=== PATIENT | male | born 1955 | race Caucasian/White ===

== ENCOUNTER 2016-08-16 11:39 | Outpatient (CLI) | payer OTHER | END 2016-08-16 11:40 | disposition critical access hospital (66) | DX: M25.551 Pain in right hip (principal) | CPT/HCPCS: A0425; A0427 ==

== ENCOUNTER 2016-08-16 11:53 | Emergency (ER) | payer OTHER ==
[2016-08-16] MEDS ORDERED: HYDROmorphone 1 MG/ML SYRINGE IVP STA (12:02)
[2016-08-16] MEDS ORDERED: SODIUM CHLORIDE 0.9% 1,000 ML IV ONE (12:02)
[2016-08-16] MEDS ORDERED: HYDROmorphone 1 MG/ML SYRINGE ONE (12:12)
--- NOTE | 2016-08-16 13:15 | XRAY Preliminary Report ---
Exam: XR Hip w/Pelvis 2-3V RT IMPRESSION: Posterior inferior lateral dislocation right prosthetic head out of the right prosthetic acetabulum. [facility] SITE ID: [id number]
[2016-08-16] MEDS ORDERED: PROPOFOL 200 MG/20 ML VIAL IVP ONE ×2 (13:18→13:20)
--- NOTE | 2016-08-16 13:25 | XRAY Report ---
EXAM: RIGHT HIP RADIOGRAPHY EXAM DATE: 08/16/2016 01:02 PM. CLINICAL HISTORY: Right hip pain after twisting injury today. COMPARISON: CT abdomen and pelvis 10/08/2015. TECHNIQUE: 2 views. FINDINGS: Bones: Normal. No fractures or bone lesion. Joints: Posterior inferior lateral displacement of the prosthetic right femoral head out of the right acetabular prosthesis. Surgical hardware appears to be intact. Soft Tissues: Normal. No soft tissue swelling. IMPRESSION: Posterior inferior lateral dislocation right prosthetic head out of the right prosthetic acetabulum. [facility] Referring Provider Line: [phone] SITE ID: [id number]
[2016-08-16 13:58] LABS: BASOPHILS % (AUTO) 0.8 %; EOSINOPHILS # (AUTO) 0.1 10^3/uL (0.0-0.7); EOSINOPHILS % (AUTO) 1.7 %; HCT - HEMATOCRIT 41.2 % (42.0-52.0); HGB - HEMOGLOBIN 14.4 g/dL (14.0-18.0); LYMPHOCYTES # (AUTO) 1.4 10^3/uL (1.5-3.5); LYMPHOCYTES % (AUTO) 29.1 %; MEAN CORPUSCULAR HEMOGLOBIN 30.5 pg (27.0-31.0); MEAN CORPUSCULAR VOLUME 87.2 fL (80.0-94.0); MEAN PLATELET VOLUME 8.4 fL (7.4-11.4); MONOCYTES # (AUTO) 0.3 10^3/uL (0.0-1.0); MONOCYTES % (AUTO) 7.2 %; NEUTROPHILS # (AUTO) 2.9 10^3/uL (1.5-6.6); NEUTROPHILS % (AUTO) 61.2 %; NUCLEATED RED BLOOD CELLS AUTO 0.1 /100WBC; RED BLOOD COUNT 4.72 10^6/uL (4.70-6.10); RED CELL DISTRIBUTION WIDTH 13.3 % (12.0-15.0); UNCORRECTED WHITE BLOOD COUNT 4.7 x10^3/uL; WHITE BLOOD COUNT 4.7 x10^3/uL (4.8-10.8)
[2016-08-16 14:03] LABS: CALCIUM 8.9 mg/dL (8.5-10.3); CREATININE 0.9 mg/dL (0.6-1.2)
--- NOTE | 2016-08-16 14:14 | ED Physician Documentation ---
History of Present Illness - Stated complaint Stated Complaint: Hip dislocation - Chief complaint Chief Complaint: Ext Problem - History obtained from History obtained from: Patient, EMS - History of Present Illness Timing: Today Pain level max: 10 Pain level now: 10 Improved by: nothing Worsened by: nothing - Additonal information Additional information: R hip pain s/p bending in internally rotating the knee. s/p R THR approx [address] [facility]. Review of Systems Ten Systems: 10 systems reviewed and negative Constitutional: denies: Fever, Chills Nose: denies: Rhinorrhea / runny nose, Congestion Cardiac: denies: Chest pain / pressure Respiratory: denies: Dyspnea, Cough GI: denies: Nausea, Vomiting Skin: denies: Rash Musculoskeletal: denies: Neck pain, Back pain Neurologic: denies: Headache PD PAST MEDICAL HISTORY - Past Medical History Past Medical History: Yes Cardiovascular: Hypertension, High cholesterol Respiratory: CPAP use, Other Neuro: None Endocrine/Autoimmune: None GI: GERD : Kidney stones, Other HEENT: Other Psych: None Musculoskeletal: Other Derm: None - Past Surgical History Past Surgical History: Yes General: Cholecystectomy, Colonoscopy Ortho: Hip replacement, Shoulder arthroplasty, Arthroscopic surgery HEENT: Rhinoplasty - Present Medications Home Medications: Ambulatory Orders Medication Instructions Recorded Confirmed Lisinopril/Hydrochlorothiazide 1 tab PO DAILY 10/26/12 08/16/16 [Lisinopril-Hctz 20-25 mg Tab] Meloxicam [Mobic] 15 mg PO DAILY 10/26/12 08/16/16 Multivitamin [Multivitamins] 1 each PO DAILY 10/26/12 08/16/16 Loratadine [Claritin] 10 mg PO DAILY 01/03/15 08/16/16 Testosterone [Fortesta] 180 gm TD DAILY 01/03/15 08/16/16 Tadalafil [Cialis] 5 mg ORAL QPM PRN 10/08/15 08/16/16 Aspirin [Aspirin EC] 81 mg PO DAILY 08/16/16 08/16/16 Furosemide [Lasix] 20 mg PO DAILY 08/16/16 08/16/16 Hydrocodone/Acetaminophen 1 - 2 each PO Q6H PRN #10 tablet 08/16/16 [Hydrocodon-Acetaminophen 5-325] Omeprazole [PriLOSEC] 20 mg PO DAILY 08/16/16 08/16/16 - Allergies Allergies/Adverse Reactions: Allergies Allergy/AdvReac Type Severity Reaction Status Date / Time erythromycin base AdvReac Severe Nausea Verified 08/16/16 11:58 [Erythromycin Base] - Social History Does the pt smoke?: No Smoking Status: Never smoker Does the pt drink ETOH?: Yes Does the pt have substance abuse?: No - Immunizations Immunizations are current?: Yes - POLST Patient has POLST: No PD ED PE NORMAL - Vitals Vital signs reviewed: Yes - General General: Alert and oriented X 3, Well developed/nourished, Other (appears in pain) - HEENT HEENT: PERRL - Neck Neck: Supple, no meningeal sign - Cardiac Cardiac: RRR, Strong equal pulses - Respiratory Respiratory: No respiratory distress, Clear bilaterally - Abdomen Abdomen: Soft, Non tender, Non distended - Derm Derm: Warm and dry - Extremities Extremities: Other (palpable deformity to the R hip. NVI.) - Neuro Neuro: Alert and oriented X 3 - Psych Psych: Normal mood, Normal affect Results - Vitals Vitals: Vital Signs - 24 hr 08/16/16 08/16/16 08/16/16 11:55 13:22 13:28 Temperature 36.8 C Heart Rate 78 68 62 Respiratory 16 18 15 Rate Blood Pressure 153/84 H 135/87 H 122/82 H O2 Saturation 98 97 100 08/16/16 08/16/16 13:31 14:28 Temperature Heart Rate 65 64 Respiratory 14 17 Rate Blood Pressure 113/74 129/89 H O2 Saturation 100 94 Oxygen O2 Source Room air - Labs Labs: Laboratory Tests 08/16/16 08/16/16 13:35 13:35 WBC 4.7 L RBC 4.72 Hgb 14.4 Hct 41.2 L MCV 87.2 MCH 30.5 MCHC 35.0 RDW 13.3 Plt Count 175 MPV 8.4 Neut # 2.9 Lymph # 1.4 L Spink # 0.3 Eos # 0.1 Baso # 0.0 Absolute Nucleated RBC 0.00 Nucleated RBCs 0.1 Sodium 141 Potassium 4.0 Chloride 105 Carbon Dioxide 28 Anion Gap 8.0 BUN 27 H Creatinine 0.9 Estimated GFR (MDRD) 86 L Glucose 130 H Calcium 8.9 - Rads (name of study) R hip xray Radiology: Prelim report reviewed, EMP read contemporaneously, See rad report ( Posterior inferior lateral dislocation right prosthetic head out of the right prosthetic acetabulum. ) Procedures - Reduction Body part reduced: Right, Hip, prosthetic Fracture or dislocation: Dislocation Anesthesia: Propofol Hip reduction technique: Fulcrum Reduction aftercare: NV intact, Xray confirms reduction, Alignment improved, Splint applied (knee immobilizer), Patient tolerated well - Procedural sedation Sedation prep: Informed consent, Time out completed, Last meal (last night), PE performed, AHA 2 - mild disease Sedation medications: propofol, given by MD Patient status during sedation: Responds to tactile, Vitals remained stable, Maintained airway (did require supplemental O2 during the procedure, but no assisted ventilations) Sedation recovery: Recovered uneventfully, Back to baseline PD MEDICAL DECISION MAKING - ED course Complexity details: reviewed results, re-evaluated patient, considered differential, d/w patient ED course: Patient with a right prosthetic hip dislocation. This was reduced in the emergency department under propofol sedation. Tolerated well. X-ray confirms reduction. We will have him follow-up with his orthopedist for further evaluation. Patient states that he does have crutches at home that he can use. Patient counseled regarding signs and symptoms for which I believe and urgent re -evaluation would be necessary. Patient with good understanding of and agreement to plan and is comfortable going home at this time This document was made in part using voice recognition software. While efforts are made to proofread this document, sound alike and grammatical errors may occur. Departure - Departure Disposition: 01 Home, Self Care Clinical Impression: Dislocation of hip prosthesis Qualifiers: Encounter type: initial encounter Qualified Code(s): T84.029A - Dislocation of unspecified internal joint prosthesis, initial encounter Condition: Good Instructions: ED Hip Replace Dislocation Reduc Follow-Up: REVA DIAZ [Primary Care Provider] - Within 1 week Prescriptions: Hydrocodone/Acetaminophen [Hydrocodon-Acetaminophen 5-325] 1 - 2 each PO Q6H PRN #10 tablet PRN Reason: pain Comments: Wear the knee immobilizer for the next 24-48 hours to help prevent you from bending and re-dislocating the hip. He should also use her crutches to help with weightbearing at home. Call your orthopedist for a follow-up appointment. Return if you worsen. Do not drink alcohol or drive while on narcotic pain medicine. Note that many narcotic pain relievers also contain tylenol/acetaminophen. Please ensure that your total dose of acetaminophen from all sources does not exceed 3 grams (3000mg) per day. You may constipated on this medication, take a stool softener such as "Colace" twice a day while you are on it. Also recommend a neny-bth-cqqczor laxative such as senna or MiraLAX any day that you do not have a bowel movement. If you received narcotic pain medication in the emergency department, do not drive or operate machinery for the next 24 hours. Discharge Date/Time: 08/16/16 14:40
--- NOTE | 2016-08-16 14:18 | XRAY Preliminary Report ---
Exam: XR Hip w/Pelvis 2-3V RT IMPRESSION: Interval reduction right hip arthroplasty dislocation. Alignment through the right hip is within normal limits. [facility] SITE ID: [id number]
--- NOTE | 2016-08-16 14:20 | XRAY Report ---
EXAM: RIGHT HIP AND PELVIS RADIOGRAPHY EXAM DATE: 08/16/2016 01:49 PM. HISTORY: Post reduction. COMPARISONS: 08/16/2016. TECHNIQUE: 1 view of the pelvis and 1 view of the hip. FINDINGS: Interval reduction right hip dislocation. Alignment through the right hip arthroplasty hard lemon is within normal limits. No acute bony abnormalities are seen. IMPRESSION: Interval reduction right hip arthroplasty dislocation. Alignment through the right hip is within normal limits. [facility] Referring Provider Line: [phone] SITE ID: [id number]
[2016-08-16 14:28] VITALS: BP 129/89
== END 2016-08-16 14:40 | disposition home or self-care (01) ==
LOC: EDUNIT# → ED 11:53
DX: T84.020A Dislocation of internal right hip prosthesis, initial encounter (principal); Y83.8 Other surgical procedures as the cause of abnormal reaction of the patient, or of later complication, without mention of misadventure at the time of the procedure; X50.9XXA Other and unspecified overexertion or strenuous movements or postures, initial encounter; Y93.89 Activity, other specified; I10 Essential (primary) hypertension; Z79.82 Long term (current) use of aspirin
CPT/HCPCS: 27265; 36415; 73502; 80048; 85025; 94770; 96361; 96374; 99152; 99284; J1170

== ENCOUNTER 2016-10-02 09:30 | Emergency (ER) | payer OTHER ==
[2016-10-02] MEDS ORDERED: IPRATROPIUM/ALBUTEROL 3 ML NEB INH STA (10:03)
[2016-10-02] MEDS ORDERED: DOXYCYCLINE 100 MG TABLET PO STA (10:03)
[2016-10-02] MEDS ORDERED: DOXYCYCLINE 100 MG TABLET PO ONE (10:09)
[2016-10-02] MEDS ORDERED: IPRATROPIUM/ALBUTEROL 3 ML NEB INH ONE (10:19)
== END 2016-10-02 11:33 | disposition home or self-care (01) ==
DX: R04.2 Hemoptysis (principal); I10 Essential (primary) hypertension; Z96.649 Presence of unspecified artificial hip joint
CPT/HCPCS: 36415; 71020; 80053; 83690; 85025; 94640; 99283; 99284; A9270; J7620

== ENCOUNTER 2016-12-11 17:36 | Outpatient (CLI) | payer OTHER | END 2016-12-11 17:37 | disposition critical access hospital (66) | LOC: EMS 17:36 | PROVIDERS: ATTEND Surgery | DX: M25.551 Pain in right hip (principal); Z96.641 Presence of right artificial hip joint | CPT/HCPCS: A0425; A0427 ==

== ENCOUNTER 2016-12-11 17:51 | Observation (INO) | payer OTHER ==
[2016-12-11] MEDS ORDERED: HYDROmorphone 1 MG/ML CARPUJECT IVP STA ×2 (17:55→19:24)
--- NOTE | 2016-12-11 17:57 | ED Physician Documentation ---
PD HPI LOWER EXT INJURY - Stated complaint Stated Complaint: DISLOCATED HIP - Chief complaint Chief Complaint: Trauma Ext - History obtained from History obtained from: Patient, EMS - History of Present Illness PD HPI LOW EXT INJURY LOCATION: Other (He has a prosthetic hip on the right, about a year and a half old. He dislocated it in July. He had his foot up on something to tie his shoes and dislocated it again, pain was severe but better after pain medication in route.) Review of Systems Ten Systems: 10 systems reviewed and negative Constitutional: reports: Reviewed and negative Cardiac: denies: Chest pain / pressure, Palpitations Respiratory: denies: Dyspnea, Cough PD PAST MEDICAL HISTORY - Past Medical History Cardiovascular: Hypertension, High cholesterol Respiratory: CPAP use, Other Neuro: None Endocrine/Autoimmune: None GI: GERD : Kidney stones, Other HEENT: Other Psych: None Musculoskeletal: Other Derm: None - Past Surgical History Past Surgical History: Yes General: Cholecystectomy, Colonoscopy Ortho: Hip replacement, Shoulder arthroplasty, Arthroscopic surgery HEENT: Rhinoplasty - Present Medications Home Medications: Ambulatory Orders Medication Instructions Recorded Confirmed Lisinopril/Hydrochlorothiazide 1 tab PO DAILY 10/26/12 10/02/16 [Lisinopril-Hctz 20-25 mg Tab] Meloxicam [Mobic] 15 mg PO DAILY 10/26/12 10/02/16 Multivitamin [Multivitamins] 1 each PO DAILY 10/26/12 10/02/16 Loratadine [Claritin] 10 mg PO DAILY 01/03/15 10/02/16 Tadalafil [Cialis] 5 mg ORAL QPM PRN 10/08/15 10/02/16 Aspirin [Aspirin EC] 81 mg PO DAILY 08/16/16 10/02/16 Furosemide [Lasix] 20 mg PO DAILY 08/16/16 10/02/16 Hydrocodone/Acetaminophen 1 - 2 each PO Q6H PRN #10 tablet 08/16/16 10/02/16 [Hydrocodon-Acetaminophen 5-325] Omeprazole [PriLOSEC] 20 mg PO DAILY 08/16/16 10/02/16 Albuterol Sulfate [Proair Hfa 2 puffs PO PRN PRN 10/02/16 10/02/16 Inhaler] Dexamethasone [Decadron] 4 mg PO DAILY #5 tablet 10/02/16 Doxycycline Hyclate 100 mg PO BID #14 tablet 10/02/16 guaiFENesin/CODEINE [Robitussin AC] 10 ml PO Q6H PRN #240 ml 10/02/16 - Allergies Allergies/Adverse Reactions: Allergies Allergy/AdvReac Type Severity Reaction Status Date / Time erythromycin base AdvReac Severe Nausea Verified 08/16/16 11:58 [Erythromycin Base] - Social History Does the pt smoke?: No Smoking Status: Never smoker Does the pt drink ETOH?: Yes Does the pt have substance abuse?: No - Family History Family history: reports: Non contributory - Immunizations Immunizations are current?: Yes - POLST Patient has POLST: No PD ED PE NORMAL - Vitals Vital signs reviewed: Yes - General General: Alert and oriented X 3, No acute distress - HEENT HEENT: Pharynx benign - Cardiac Cardiac: RRR, No murmur - Respiratory Respiratory: No respiratory distress, Clear bilaterally - Abdomen Abdomen: Soft, Non tender - Back Back: No CVA TTP, No spinal TTP - Derm Derm: Normal color, Warm and dry - Extremities Extremities: Other (Right hip is shortened and flexed and very tender but neurovascularly intact with normal sensation and bounding pedal pulses in the right foot.) - Neuro Neuro: Alert and oriented X 3, Normal speech - Psych Psych: Normal mood, Normal affect Results - Vitals Vitals: Vital Signs - 24 hr 12/11/16 12/11/16 12/11/16 17:51 18:25 18:33 Temperature 36.7 C Heart Rate 71 70 46 L Respiratory 16 20 Rate Blood Pressure 140/92 H 132/85 H O2 Saturation 97 97 12/11/16 12/11/16 12/11/16 18:40 18:45 18:50 Temperature Heart Rate 96 70 Respiratory 18 Rate Blood Pressure 170/96 H 161/89 H 145/80 H O2 Saturation 100 12/11/16 12/11/16 12/11/16 19:15 19:54 20:17 Temperature Heart Rate 72 70 90 Respiratory 18 18 14 Rate Blood Pressure 131/91 H 134/91 H 138/83 H O2 Saturation 98 100 96 Oxygen O2 Source Room air Oxygen Flow Rate 4 - Rads (name of study) R hip XR Radiology: EMP read contemporaneously (No obvious fracture, there is a dislocated, probably posterior dislocation.) Post reduction Radiology: EMP read contemporaneously (no change) Procedures - Reduction Body part reduced: Right, Hip, prosthetic Fracture or dislocation: Dislocation Hip reduction technique: Fulcrum Reduction aftercare: NV intact, Patient tolerated well. No: Xray confirms reduction (unable to reduce) - Procedural sedation Sedation prep: Informed consent, AHA 2 - mild disease Sedation medications: propofol (100mg then 70mg IVP) Patient status during sedation: Unresponsive, Vitals remained stable, Maintained airway, Recovered uneventfully. No: Respiratory depression, Hypoxia , Needed resp assistance Sedation recovery: Recovered uneventfully PD MEDICAL DECISION MAKING - ED course ED course: 61-year-old gentleman with prosthetic hip dislocation. I was unable to reduce it using conscious sedation, and spoke with Rowdy Desai, the orthopedist at 7:15 PM who recommends admission by the hospitalist to fix it in the morning as he has not been n.p.o. very long. I spoke with the hospitalist for admission at 7:21 PM. Departure - Departure Disposition: ED Place in Observation Clinical Impression: Dislocation of hip prosthesis Qualifiers: Encounter type: initial encounter Qualified Code(s): T84.029A - Dislocation of unspecified internal joint prosthesis, initial encounter Condition: Stable Discharge Date/Time: 12/11/16 21:05
[2016-12-11] MEDS ORDERED: HYDROmorphone 1 MG/ML CARPUJECT ONE ×2 (18:05→19:53)
[2016-12-11] MEDS ORDERED: PROPOFOL 200 MG/20 ML VIAL IVP ONE (18:29)
--- NOTE | 2016-12-11 18:40 | XRAY Preliminary Report ---
Exam: XR Hip w/Pelvis 2-3V RT IMPRESSION: Limited evaluation due to nonstandard images. Patient is unable to lie flat for the x-ray s, all images performed when the patient lying on his left side. Dislocated right total hip arthropla sty. The femoral head arthroplasty component appears dislocated posteriorly from the acetabular compo nent. No acute fracture is seen. [facility] SITE ID: [id number]
[2016-12-11] MEDS ORDERED: PROPOFOL 200 MG/20 ML VIAL IVP STA (18:42)
--- NOTE | 2016-12-11 18:42 | XRAY Report ---
EXAM: RIGHT HIP RADIOGRAPHY EXAM DATE: 12/11/2016 06:26 PM. HISTORY: Dislocation. History of right hip replacement on 07/15. Previous dislocation 3 months ago. COMPARISONS: 08/16/2016. TECHNIQUE: 2 views. FINDINGS: Limited evaluation due to nonstandard images. Patient is unable to lie flat for the x-rays, all images performed when the patient lying on his left side. Dislocated right total hip arthroplast y. The femoral head arthroplasty component appears dislocated posteriorly from the acetabular compone nt. No acute fracture is seen. IMPRESSION: Limited evaluation due to nonstandard images. Patient is unable to lie flat for the x-ray s, all images performed when the patient lying on his left side. Dislocated right total hip arthropla sty. The femoral head arthroplasty component appears dislocated posteriorly from the acetabular compo nent. No acute fracture is seen. [facility] Referring Provider Line: [phone] SITE ID: [id number]
--- NOTE | 2016-12-11 19:50 | XRAY Preliminary Report ---
Exam: XR Hip w/Pelvis 2-3V RT IMPRESSION: 1. Prior right total hip arthroplasty. 2. Persistent superolateral right hip dislocation. 3. No fracture evident. 4. Left hip degenerative changes. [facility] SITE ID: [id number]
--- NOTE | 2016-12-11 19:52 | XRAY Report ---
EXAM: RIGHT HIP AND PELVIS RADIOGRAPHY EXAM DATE: 12/11/2016 06:54 PM. HISTORY: Post reduction. COMPARISONS: Right hip series earlier same day. TECHNIQUE: 1 view of the pelvis and 1 view of the hip. FINDINGS: Bones: Normal. No fracture or bone lesion. Joints: Prior right total hip arthroplasty. No abnormal lucency adjacent to right hip prosthesis to suggest loosening. Persistent superolateral right hip dislocation. At least mild left hip joint space narrowing. Soft Tissues: Normal. No soft tissue swelling. IMPRESSION: 1. Prior right total hip arthroplasty. 2. Persistent superolateral right hip dislocation. 3. No fracture evident. 4. Left hip degenerative changes. [facility] Referring Provider Line: [phone] SITE ID: [id number]
[2016-12-11] MEDS ORDERED: SODIUM CHLORIDE 0.9% 20 ML ONE (19:57)
[2016-12-11] MEDS ORDERED: ACETAMINOPHEN 325 MG TABLET PO PRN (20:39)
[2016-12-11] MEDS ORDERED: ONDANSETRON 4 MG/2 ML VIAL IVP PRN (20:39)
[2016-12-11] MEDS: oxyCODONE 5 MG TABLET PO PRN (21:19)
[2016-12-11] MEDS: SODIUM CHLORIDE FLUSH 0.9% 10 ML SYRINGE IVP SCH (21:21)
[2016-12-11] MEDS: MORPHINE 2 MG/ML SYRINGE IVP PRN ×2 (21:21→23:37)
[2016-12-11] MEDS: SODIUM CHLORIDE FLUSH 0.9% 10 ML SYRINGE IVP PRN ×3 (21:21→23:37)
[2016-12-11 21:56] LABS: BASOPHILS % (AUTO) 0.3 %; EOSINOPHILS % (AUTO) 0.5 %; HCT - HEMATOCRIT 41.3 % (42.0-52.0); HGB - HEMOGLOBIN 13.7 g/dL (14.0-18.0); LYMPHOCYTES # (AUTO) 1.1 10^3/uL (1.5-3.5); LYMPHOCYTES % (AUTO) 11.9 %; MEAN CORPUSCULAR HEMOGLOBIN 28.7 pg (27.0-31.0); MEAN CORPUSCULAR HGB CONC 33.1 g/dL (32.0-36.0); MEAN CORPUSCULAR VOLUME 86.7 fL (80.0-94.0); MEAN PLATELET VOLUME 7.8 fL (7.4-11.4); MONOCYTES # (AUTO) 0.4 10^3/uL (0.0-1.0); MONOCYTES % (AUTO) 4.2 %; NEUTROPHILS # (AUTO) 7.9 10^3/uL (1.5-6.6); NEUTROPHILS % (AUTO) 83.1 %; RED BLOOD COUNT 4.76 10^6/uL (4.70-6.10); RED CELL DISTRIBUTION WIDTH 14.6 % (12.0-15.0); UNCORRECTED WHITE BLOOD COUNT 9.5 x10^3/uL; WHITE BLOOD COUNT 9.5 x10^3/uL (4.8-10.8)
[2016-12-11 22:03] LABS: CALCIUM 8.9 mg/dL (8.5-10.3); CREATININE 0.8 mg/dL (0.6-1.2); POTASSIUM 3.9 mmol/L (3.5-5.0)
[2016-12-12] MEDS: oxyCODONE 5 MG TABLET PO PRN ×2 (01:47→06:21)
[2016-12-12] MEDS ORDERED: PROMETHAZINE INJ 25 MG in SODIUM CHLORIDE 0.9% 50 ML IV PRN (04:12)
--- NOTE | 2016-12-12 04:53 | HISTORY & PHYSICAL EXAMINATION ---
DATE OF OBSERVATION: 12/11/2016. Please note that I did see the patient and completed admission orders prior to midnight. CHIEF COMPLAINT: Right hip pain. HISTORY OF PRESENT ILLNESS: The patient is a 61-year-old white male with past medical history of right hip replacement, which he underwent in 07/2015. Since then, he had an episode of a dislocated hip, for which he was seen in 07/2016. At that time his hip was reduced without complication. On the day of presentation, the patient was at his home. He put up his right leg on a coffee table and twisted sideways, trying to fix his socks. Subsequently, he dislocated the right hip and developed intense pain, inability to ambulate. The patient reported that last time in 07/2016 when he had similar problem with his hip, he did the similar motion and activity. Upon presentation to the ER, the patient was hemodynamically stable and afebrile. Other than the hip problem, he reported no change in his medical issues. So the ER physician, Dr. Rick, tried to reduce the hip, but was not successful ; therefore, called orthopedic surgeon, Dr. Desai. Dr. Desai requested admission of this patient under the hospitalist service pending a hip reduction procedure. PAST MEDICAL HISTORY: Hypertension, obstructive sleep apnea using CPAP, gastroesophageal reflux, osteoarthritis status post right hip replacement. OUTPATIENT MEDICATIONS The patient could not provide an updated medication list, but he told me he takes 1. Furosemide for lymphedema. 2. He takes lisinopril and hydrochlorothiazide for high blood pressure. Other medications are unknown. SOCIAL HISTORY: The patient does not smoke. He drinks alcohol socially. FAMILY HISTORY: Reviewed and unremarkable. REVIEW OF SYSTEMS: Please see pertinent positives listed. There was no additional complaint on the 12-point review. PHYSICAL EXAMINATION VITAL SIGNS: Heart rate between 70 and 90, temperature 36.7 Celsius, blood pressure 140/80, respiratory rate 18, oxygen saturation 96% on room air. GENERAL: The patient is a well-developed male who was not in distress. CARDIOVASCULAR: S1, S2, regular rate and rhythm. No pathologic murmur. RESPIRATORY: Clear to auscultation without wheezes or crackles. No increased work of breathing. LYMPH: No lymphedema. MUSCULOSKELETAL: A dislocated right hip. Of note, peripheral pulses are palpable on all extremities. NEUROLOGIC: Alert, oriented, nonfocal. PSYCH: Cooperative. SKIN: No rash. No jaundice. ABDOMEN: Soft, benign, nontender. Bowel tones present. ASSESSMENT AND PLAN 1. The patient is a 61-year-old male who is getting admitted with a dislocated right hip. Reduction in the ER was unsuccessful. Therefore, he will need to see an orthopedic surgeon. Overnight, we are admitting this patient under observation, keeping him n.p.o. for a procedure in the morning. Given that he is on diuretics, I check basic chemistry panel. I added CBC as well. Overnight, we will hold diuretics as the patient is n.p.o. waiting for procedure. 2. Symptom control, pain control. Notably, the patient had uncontrolled pain and required multiple pain medications. 3. Deep venous thrombosis prophylaxis. 4. Awaiting medication reconciliation. 5. FULL CODE. Time spent in the care of this patient was 50 minutes. JOB #: [id number] EXT JOB #:[id number] JULIEN
[2016-12-12] MEDS ORDERED: LACTATED RINGERS 500 ML IV SCH (05:00)
[2016-12-12] MEDS: SODIUM CHLORIDE FLUSH 0.9% 10 ML SYRINGE IVP SCH (05:32)
[2016-12-12] MEDS: MORPHINE 2 MG/ML SYRINGE IVP PRN (05:39)
[2016-12-12] MEDS ORDERED: PANTOPRAZOLE 40 MG TABLET PO SCH (07:00)
--- NOTE | 2016-12-12 07:46 | Discharge Plan ---
Discharge Plan Disposition: 01 Home, Self Care Condition: Good Diet: Cardiac Activity Restrictions: Activity as Tolerated Shower Restrictions: No Driving Restrictions: No Weight Bearing: Full Weight Instruction Topics: Hip Precautions, Hip How Works Additional Instructions or Follow Up instructions: Please continue to take all home medications as prescribed. You will need to see your orthopedic doctor within one week of discharge for reevaluation of the hip. Take pain medication as prescribed. Eat a heart healthy diet and get plenty of water to drink daily. Avoid soda. Limit caffeine. You can return to work if you work Get plenty of rest and exercise with precautions for the hip so you don't dislocate it again. You have been given information regarding hip safety. Return to the ER if symptoms worsen or you have chest pain shortness of breath or fever. See your primary care provider as scheduled. No Smoking: If you smoke, Please STOP! Call for help.
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
[2016-12-12] MEDS ORDERED: NON FORMULARY MED (Omeprazole [Prilosec] 20 MG) PO SCH (09:00)
[2016-12-12] MEDS ORDERED: ENOXAPARIN 40 MG/0.4 ML SYRINGE SUBQ SCH (09:00)
[2016-12-12] MEDS ORDERED: POLYETHYLENE GLYCOL 3350 17 GM PACKET PO SCH (09:00)
[2016-12-12] MEDS ORDERED: MULTIVITAMIN TABLET PO SCH (09:00)
[2016-12-12] MEDS ORDERED: LACTATED RINGERS 1,000 ML IV ONE ×2 (09:21→09:59)
--- NOTE | 2016-12-12 10:00 | OPERATIVE REPORT ---
Operative Report - General Admit Date: 12/11/16 Procedure Date: 12/12/16 Planned Procedure: Closed reduction Right Total Hip Dislocation Pre-Op Diagnosis: Dislocated Right Total Hip. Procedure Performed: Closed reduction under anesthesia. Post Op Diagnosis: Same - Procedure Note Primary Surgeon: Geovanny Desai MD Anesthesia Provider: Deep Webster CRNA Anesthesia Technique: General LMA Pathology: Same IV Fluids (mL): 500 (LR) Estimated Blood Loss (mL): 0 Complications: FLuoroscopy unavailable during procedure secondary to difficulties with migrant leader. SI completed. - Other Other Information/Narrative: Disposition: PACU >> Observation \Condition: Stable
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
[2016-12-12 11:17] VITALS: BP 123/87
[2016-12-12] MEDS ORDERED: fentaNYL 100 MCG/2 ML VIAL IVP ONE (13:37)
[2016-12-12] MEDS ORDERED: PROPOFOL 200 MG/20 ML VIAL IVP ONE (13:37)
[2016-12-12] MEDS ORDERED: MIDAZOLAM 2 MG/2 ML VIAL IVP ONE (13:37)
[2016-12-12] MEDS ORDERED: ONDANSETRON 4 MG/2 ML VIAL IVP ONE (13:37)
[2016-12-12] MEDS ORDERED: LIDOCAINE-MPF 2% 5 ML VIAL IM ONE (13:37)
[2016-12-12] MEDS ORDERED: DEXAMETHASONE 4 MG/ML VIAL IVP ONE (13:37)
[2016-12-12] MEDS ORDERED: KETOROLAC 30 MG/ML VIAL IVP ONE (13:37)
--- NOTE | 2016-12-12 14:14 | XRAY Report ---
INTRAOPERATIVE RIGHT HIP: 12/12/2016 CLINICAL INDICATION: Reduction of dislocation. FINDINGS: Intraoperative matrix image demonstrates relocation of the femoral prosthesis into the helen tabular prosthesis. Two seconds of fluoroscopy time was provided to Dr. Desai; 1 spot image obtained. IMPRESSION: INTRAOPERATIVE IMAGING OF PROSTHETIC RIGHT HIP REDUCTION. JOB #: [id number] EXT JOB #:[id number]
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
== END 2016-12-12 13:38 | disposition home or self-care (01) ==
LOC: EDUNIT# → ED 17:51 → OBS 20:39
PROVIDERS: ADMIT Internal Medicine; ATTEND Nurse Practitioner
PROC: 0SW9XJZ Revision of Synthetic Substitute in Right Hip Joint, External Approach (ICD-10-PCS; principal; 2016-12-12 08:15)
DX: T84.020A Dislocation of internal right hip prosthesis, initial encounter (principal); X50.1XXA Overexertion from prolonged static or awkward postures, initial encounter; Y83.1 Surgical operation with implant of artificial internal device as the cause of abnormal reaction of the patient, or of later complication, without mention of misadventure at the time of the procedure; K21.9 Gastro-esophageal reflux disease without esophagitis; G47.33 Obstructive sleep apnea (adult) (pediatric); E66.09 Other obesity due to excess calories; I10 Essential (primary) hypertension; E78.2 Mixed hyperlipidemia; J45.909 Unspecified asthma, uncomplicated; Y92.009 Unspecified place in unspecified non-institutional (private) residence as the place of occurrence of the external cause; Z96.619 Presence of unspecified artificial shoulder joint; Z79.82 Long term (current) use of aspirin; Z68.33 Body mass index [BMI] 33.0-33.9, adult; Z79.1 Long term (current) use of non-steroidal anti-inflammatories (NSAID)
CPT/HCPCS: 27265; 27266; 36415; 73502; 80048; 85025; 96374; 96375; 96376; 97161; 99152; 99284; 99285; A9270; J1170; J2270; J7040; J7120

== ENCOUNTER 2017-04-29 09:19 | Outpatient (CLI) | payer OTHER | END 2017-04-29 09:20 | disposition home or self-care (01) | LOC: SC 09:19 | PROVIDERS: ATTEND Internal Medicine Pulmonary Disease | DX: G47.33 Obstructive sleep apnea (adult) (pediatric) (principal) | CPT/HCPCS: 99212; 99213 ==

== ENCOUNTER 2017-07-29 14:23 | Outpatient (CLI) | payer OTHER | END 2017-07-29 14:24 | disposition home or self-care (01) | LOC: SC 14:23 | PROVIDERS: ATTEND Internal Medicine Pulmonary Disease | DX: G47.33 Obstructive sleep apnea (adult) (pediatric) (principal) | CPT/HCPCS: 99212; 99213 ==

== ENCOUNTER 2017-12-26 12:41 | Outpatient (CLI) | payer OTHER | END 2017-12-26 12:42 | disposition critical access hospital (66) | LOC: EMS 12:41 | PROVIDERS: ATTEND Surgery | DX: M25.551 Pain in right hip (principal); Z96.641 Presence of right artificial hip joint | CPT/HCPCS: A0425; A0429 ==

== ENCOUNTER 2017-12-26 12:57 | Emergency (ER) | payer OTHER ==
[2017-12-26] MEDS ORDERED: HYDROmorphone 1 MG/ML CARPUJECT IVP STA ×2 (13:10→13:52)
[2017-12-26] MEDS ORDERED: ONDANSETRON 4 MG/2 ML VIAL IVP STA (13:10)
--- NOTE | 2017-12-26 13:14 | ED Physician Documentation ---
PD HPI LOWER EXT INJURY - Stated complaint Stated Complaint: R HIP DISLOCATION - Chief complaint Chief Complaint: Ext Problem - History obtained from History obtained from: Patient, EMS - History of Present Illness PD HPI LOW EXT INJURY LOCATION: Right, Hip (H/O discloation of prosthetic x2. Bending over today and R hip popped. Severe pain, cannot walk.) Review of Systems Constitutional: denies: Fever, Chills Respiratory: denies: Dyspnea, Cough GI: denies: Abdominal Pain, Nausea, Vomiting PD PAST MEDICAL HISTORY - Past Medical History Cardiovascular: Hypertension, High cholesterol Respiratory: Sleep apnea (Uses CPAP.), CPAP use, Other Endocrine/Autoimmune: None GI: GERD : Kidney stones, Other HEENT: Other Psych: None Musculoskeletal: Other Derm: None - Past Surgical History Past Surgical History: Yes General: Cholecystectomy, Colonoscopy Ortho: Hip replacement, Shoulder arthroplasty, Arthroscopic surgery HEENT: Rhinoplasty - Present Medications Home Medications: Ambulatory Orders Medication Instructions Recorded Confirmed Lisinopril/Hydrochlorothiazide 1 tab PO DAILY 10/26/12 12/12/16 [Lisinopril-Hctz 20-25 mg Tab] Meloxicam [Mobic] 15 mg PO DAILY 10/26/12 12/12/16 Multivitamin [Multivitamins] 1 each PO DAILY 10/26/12 12/12/16 Loratadine [Claritin] 10 mg PO DAILY 01/03/15 12/12/16 Tadalafil [Cialis] 5 mg ORAL QPM PRN 10/08/15 12/12/16 Aspirin [Aspirin EC] 81 mg PO DAILY 08/16/16 12/12/16 Furosemide [Lasix] 20 mg PO BID 08/16/16 12/12/16 Omeprazole [PriLOSEC] 20 mg PO DAILY 08/16/16 12/12/16 Albuterol Sulfate [Proair Hfa 2 puffs PO PRN PRN 10/02/16 12/12/16 Inhaler] guaiFENesin/CODEINE [Robitussin AC] 10 ml PO Q6H PRN #240 ml 10/02/16 12/12/16 Ipratropium/Albuterol [Combivent 2 puffs INH Q6H 12/12/16 12/12/16 Respimat] Oxycodone HCl/Acetaminophen 1 - 2 each PO Q6H PRN #14 tablet 12/26/17 [Percocet 5-325 mg Tablet] - Allergies Allergies/Adverse Reactions: Allergies Allergy/AdvReac Type Severity Reaction Status Date / Time erythromycin base AdvReac Severe Nausea Verified 12/26/17 13:03 [Erythromycin Base] - Social History Does the pt smoke?: No Smoking Status: Never smoker Does the pt drink ETOH?: Yes Does the pt have substance abuse?: No - Immunizations Immunizations are current?: Yes - POLST Patient has POLST: No PD ED PE NORMAL - Vitals Vital signs reviewed: Yes - General General: Alert and oriented X 3, No acute distress - HEENT HEENT: PERRL, EOMI - Neck Neck: Supple, no meningeal sign, No bony TTP - Cardiac Cardiac: RRR, No murmur - Respiratory Respiratory: No respiratory distress, Clear bilaterally - Abdomen Abdomen: Non tender - Back Back: No CVA TTP, No spinal TTP - Derm Derm: Normal color, Warm and dry - Extremities Extremities: Other (Holding R hip flexed, int rotated. Good pulses and sensation in R foot.) Results - Vitals Vitals: Vital Signs - 24 hr 12/26/17 12/26/17 12/26/17 13:03 14:07 15:04 Temperature 37.0 C Heart Rate 72 65 70 Respiratory 18 16 14 Rate Blood Pressure 124/89 H 125/75 145/82 H O2 Saturation 98 97 97 12/26/17 12/26/17 12/26/17 15:06 15:10 15:16 Temperature Heart Rate 70 68 57 L Respiratory 16 20 16 Rate Blood Pressure 121/81 H 153/91 H 130/93 H O2 Saturation 95 96 97 12/26/17 12/26/17 12/26/17 15:21 15:22 15:42 Temperature Heart Rate 60 62 69 Respiratory 16 14 12 Rate Blood Pressure 129/89 H 144/88 H O2 Saturation 99 98 12/26/17 12/26/17 15:50 15:55 Temperature Heart Rate 64 60 Respiratory 16 14 Rate Blood Pressure 118/87 H 126/85 H O2 Saturation 95 98 Oxygen O2 Source Nasal cannula Oxygen Flow Rate 2 Procedures - Reduction Body part reduced: Right, Hip, prosthetic Fracture or dislocation: Dislocation Anesthesia: Propofol (80mg then 40mg IVP) Hip reduction technique: Fulcrum Reduction aftercare: Patient tolerated well - Procedural sedation Sedation prep: Informed consent, AHA 2 - mild disease Sedation medications: propofol (80mg then 40mg IVP) Patient status during sedation: Responds to tactile, Vitals remained stable, Maintained airway, Recovered uneventfully Sedation recovery: Recovered uneventfully PD MEDICAL DECISION MAKING - ED course ED course: First attempt at reduction was unsuccessful. He requested that I try a second time as opposed to going to the OR and I did. He was given 90 then 40 mg of propofol IV push and with some significant exertion on my part using mostly external rotation and fulcrum I was able to reduce it and the x-ray was better. He was placed in a knee immobilizer to wear until he follows up with his orthopedist. - Sepsis Event Vital Signs: Vital Signs - 24 hr 12/26/17 12/26/17 12/26/17 13:03 14:07 15:04 Temperature 37.0 C Heart Rate 72 65 70 Respiratory 18 16 14 Rate Blood Pressure 124/89 H 125/75 145/82 H O2 Saturation 98 97 97 12/26/17 12/26/17 12/26/17 15:06 15:10 15:16 Temperature Heart Rate 70 68 57 L Respiratory 16 20 16 Rate Blood Pressure 121/81 H 153/91 H 130/93 H O2 Saturation 95 96 97 12/26/17 12/26/17 12/26/17 15:21 15:22 15:42 Temperature Heart Rate 60 62 69 Respiratory 16 14 12 Rate Blood Pressure 129/89 H 144/88 H O2 Saturation 99 98 12/26/17 12/26/17 15:50 15:55 Temperature Heart Rate 64 60 Respiratory 16 14 Rate Blood Pressure 118/87 H 126/85 H O2 Saturation 95 98 Oxygen O2 Source Nasal cannula Oxygen Flow Rate 2 Departure - Departure Disposition: 01 Home, Self Care Clinical Impression: Dislocation of hip prosthesis Qualifiers: Encounter type: initial encounter Qualified Code(s): T84.029A - Dislocation of unspecified internal joint prosthesis, initial encounter; Z96.649 - Presence of unspecified artificial hip joint Condition: Good Record reviewed to determine appropriate education?: Yes Instructions: ED Hip Replace Dislocation Reduc Prescriptions: Oxycodone HCl/Acetaminophen [Percocet 5-325 mg Tablet] 1 - 2 each PO Q6H PRN #14 tablet PRN Reason: pain Comments: Wear the knee immobilizer at all times except when showering until you follow-up with your orthopedic surgeon. Call her to arrange a follow-up appointment. Do not drink or drive while taking narcotic pain medication. Note that many narcotic pain relievers also contain Tylenol/acetaminophen. Please ensure that your total dose of acetaminophen from all sources does not exceed 3 g (3000 mg) per day. You may get constipated while on this medication. Take a stool softener such as Colace twice a day while you are on it. Also add an [id number]-adhhoxs laxative such as senna or MiraLAX on any day that you do not have a bowel movement. If you received a narcotic pain medication or sedative while in the emergency department, do not drive for the next 24 hours. Your blood pressure was elevated today on check into the emergency department. This does not mean that you have hypertension, it is a common phenomenon to come to the emergency department and have elevated blood pressure. I recommend that you see your primary care physician within the week to have it rechecked when you are feeling better.
[2017-12-26] MEDS ORDERED: PROPOFOL 200 MG/20 ML VIAL IVP STA ×3 (14:51→15:49)
--- NOTE | 2017-12-26 14:59 | XRAY Report ---
Reason: hip dislocation Procedure Date: 12/26/2017 Accession Number: [id number] / [id number] Procedure: XR - Hip w/Pelvis 2-3V RT CPT Code: FULL RESULT: EXAM: RIGHT HIP AND PELVIS RADIOGRAPHY EXAM DATE: 12/26/2017 02:50 PM. HISTORY: Hip dislocation. COMPARISONS: Right hip 12/12/2016 8:46 AM. TECHNIQUE: 1 view of the pelvis and 1 view of the hip. FINDINGS: Status post right total hip arthroplasty. The right prosthetic stem is posterior-superiorly dislocated from the acetabular cup component. No acute fracture is identified. IMPRESSION: Right total hip arthroplasty dislocated. RADIA
--- NOTE | 2017-12-26 15:53 | XRAY Report ---
Reason: POST REDUCTION Procedure Date: 12/26/2017 Accession Number: [id number] / [id number] Procedure: XR - Pelvis 1 View CPT Code: FULL RESULT: EXAM: PELVIS RADIOGRAPHY EXAM DATE: 12/26/2017 03:36 PM. CLINICAL HISTORY: Post reduction. COMPARISON: HIP W/PELVIS 2-3V RT 12/26/2017 2:34 PM. TECHNIQUE: 1 view. FINDINGS: Bones: Normal. No fracture or bone lesion. Joints: Persistent superior dislocation of the prosthetic right femoral head relative to the right acetabular prosthesis. Mild degenerative changes left hip joint. Soft Tissues: Normal. No soft tissue swelling. IMPRESSION: Persistent dislocation right prosthetic hip. RADIA
--- NOTE | 2017-12-26 16:18 | XRAY Report ---
Reason: POST REDUCTION Procedure Date: 12/26/2017 Accession Number: [id number] / [id number] Procedure: XR - Pelvis 1 View CPT Code: FULL RESULT: EXAM: PELVIS RADIOGRAPHY EXAM DATE: 12/26/2017 04:03 PM. CLINICAL HISTORY: POST REDUCTION. COMPARISON: HIP W/PELVIS 2-3V RT 12/26/2017 3:20 PM. TECHNIQUE: 1 view. FINDINGS: Bones: There is a bipolar right hip prosthesis. There is no fracture. Joints: There is satisfactory alignment at the right hip post reduction. Soft Tissues: Unremarkable. IMPRESSION: Satisfactory right hip alignment post reduction. RADIA
[2017-12-26 16:24] VITALS: BP 108/79
== END 2017-12-26 16:34 | disposition home or self-care (01) ==
LOC: EDUNIT# → ED 12:57
DX: I10 Essential (primary) hypertension (principal)
CPT/HCPCS: 27266; 72170; 73502; 94770; 96374; 99283; 99284; J1170

== ENCOUNTER 2018-02-05 22:30 | Outpatient (CLI) | payer OTHER | END 2018-02-05 22:31 | disposition critical access hospital (66) | LOC: EMS 22:30 | PROVIDERS: ATTEND Surgery | DX: M25.551 Pain in right hip (principal); Z96.641 Presence of right artificial hip joint | CPT/HCPCS: A0425; A0427 ==

== ENCOUNTER 2018-02-05 22:47 | Day surgery (SDC) | payer OTHER ==
[2018-02-05] MEDS ORDERED: HYDROmorphone 1 MG/ML CARPUJECT IVP STA (23:44)
--- NOTE | 2018-02-06 00:04 | XRAY Report ---
Reason: hip pain Procedure Date: 02/05/2018 Accession Number: [id number] / [id number] Procedure: XR - Hip w/Pelvis 2-3V RT CPT Code: FULL RESULT: EXAM: RIGHT HIP AND PELVIS RADIOGRAPHY EXAM DATE: 02/05/2018 11:45 PM. HISTORY: 12/01/2017 COMPARISONS: HIP W/PELVIS 2-3V RT 12/26/2017 3:49 PM. TECHNIQUE: 1 view of the pelvis and 1 view of the hip. FINDINGS: Bones: Normal. No fracture or bone lesion. Joints: Superior dislocation of right hip prosthesis. Soft Tissues: Normal. No soft tissue swelling. IMPRESSION: Superior right hip prosthesis dislocation. RADIA
--- NOTE | 2018-02-06 00:10 | ED Physician Documentation ---
PD HPI LOWER EXT INJURY - Stated complaint Stated Complaint: RIGHT HIP DISLOCATION - Chief complaint Chief Complaint: Ext Problem - Additional information Additional information: 62-year-old male presents the emergency department with right hip pain. 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 The last time the patient had a dislocation he required reduction in the operating room. The patient denies any fall or injury, this occurred while squatting. Symptoms are described as severe. No other area of injury. No relieving factor. Symptoms occurred just prior to arrival. Review of Systems Constitutional: denies: Fever Eyes: denies: Loss of vision Ears: denies: Ear pain Throat: denies: Sore throat Cardiac: denies: Chest pain / pressure Musculoskeletal: reports: Extremity pain, Joint pain Neurologic: denies: Generalized weakness Immunocompromised: denies: Chemotherapy PD PAST MEDICAL HISTORY - Past Medical History Past Medical History: Yes Cardiovascular: Hypertension, High cholesterol Respiratory: Sleep apnea, CPAP use, Other Endocrine/Autoimmune: None GI: GERD : Kidney stones, Other HEENT: Other Psych: None Musculoskeletal: Other Derm: None - Past Surgical History Past Surgical History: Yes General: Cholecystectomy, Colonoscopy Ortho: Hip replacement, Shoulder arthroplasty, Arthroscopic surgery HEENT: Rhinoplasty - Present Medications Home Medications: Ambulatory Orders Medication Instructions Recorded Confirmed Lisinopril/Hydrochlorothiazide 1 tab PO DAILY 10/26/12 02/05/18 [Lisinopril-Hctz 20-25 mg Tab] Meloxicam [Mobic] 15 mg PO DAILY 10/26/12 02/05/18 Multivitamin [Multivitamins] 1 each PO DAILY 10/26/12 02/05/18 Loratadine [Claritin] 10 mg PO DAILY 01/03/15 02/05/18 Tadalafil [Cialis] 5 mg ORAL QPM PRN 10/08/15 02/05/18 Aspirin [Aspirin EC] 81 mg PO DAILY 08/16/16 02/05/18 Omeprazole [PriLOSEC] 20 mg PO DAILY 08/16/16 02/05/18 Albuterol Sulfate [Proair Hfa 2 puffs PO PRN PRN 10/02/16 02/05/18 Inhaler] Ipratropium/Albuterol [Combivent 2 puffs INH Q6H 12/12/16 02/05/18 Respimat] Oxycodone HCl/Acetaminophen 1 - 2 each PO Q6H PRN #14 tablet 12/26/17 02/05/18 [Percocet 5-325 mg Tablet] - Allergies Allergies/Adverse Reactions: Allergies Allergy/AdvReac Type Severity Reaction Status Date / Time erythromycin base AdvReac Severe Nausea Verified 02/05/18 22:53 [Erythromycin Base] - Social History Does the pt smoke?: No Smoking Status: Never smoker Does the pt drink ETOH?: Yes Does the pt have substance abuse?: No - Immunizations Immunizations are current?: Yes - POLST Patient has POLST: No PD ED PE NORMAL - General General: Alert and oriented X 3. No: No acute distress (The patient appears quite uncomfortable) - HEENT HEENT: Atraumatic, PERRL, EOMI, Ears normal - Cardiac Cardiac: RRR, Strong equal pulses - Respiratory Respiratory: No respiratory distress - Derm Derm: Normal color - Extremities Extremities: Normal ROM s pain (The patient is quite tender in his right hip, there appears to be an obvious deformity, the patient has normal sensation light touch distally. The patient has brisk cap refill and a normal dorsalis pedis pulse there appears to be a clinical right hip dislocation). No: No deformity, No tenderness to palpate - Neuro Neuro: Alert and oriented X 3, Normal speech - Psych Psych: Normal affect Results - Vitals Vitals: Vital Signs - 24 hr 02/05/18 02/05/18 02/05/18 22:47 23:32 23:49 Temperature 36.9 C Heart Rate 81 74 63 Respiratory 18 18 18 Rate Blood Pressure 162/85 H 129/71 128/75 O2 Saturation 99 97 98 02/06/18 00:03 Temperature Heart Rate 62 Respiratory 16 Rate Blood Pressure 125/76 O2 Saturation 97 Oxygen O2 Source Room air - Rads (name of study) XR Hip Radiology: Final report received PD MEDICAL DECISION MAKING - ED course ED course: Given the complicated course the patient had in the past I discussed the case with the on-call orthopedic surgeon Dr. Robles. Since the patient's required operative reduction he feels that would be best to attempt this in the operating room under general anesthesia. The findings and plan were discussed the patient who understands and agrees. The patient will be discharged to the operating room for an outpatient procedure Departure - Departure Disposition: ED Transfer to [facility] Clinical Impression: Dislocated hip Qualifiers: Encounter type: initial encounter Laterality: unspecified laterality Qualified Code(s): S73.006A - Unspecified dislocation of unspecified hip, initial enc ounter Condition: Fair
--- NOTE | 2018-02-06 00:48 | ANESTHESIA ---
Pre-Anesthesia VS, & Labs - Diagnosis right hip dislocation - Procedure closed reduction right hip Vital Signs: Temp Pulse Resp BP Pulse Ox 36.9 C 62 16 125/76 97 02/05/18 22:47 02/06/18 00:03 02/06/18 00:03 02/06/18 00:03 02/06/18 00:03 Height 5 ft 10 in Weight (kg) 95.254 kg Body Mass Index 30.1 - NPO Other (6 hrs) - Lab Results Lab results reviewed: No Home Medications and Allergies Lisinopril/Hydrochlorothiazide [Lisinopril-Hctz 20-25 mg Tab] 1 tab PO DAILY 10/26/12 Meloxicam [Mobic] 15 mg PO DAILY 10/26/12 Multivitamin [Multivitamins] 1 each PO DAILY 10/26/12 Loratadine [Claritin] 10 mg PO DAILY 01/03/15 Tadalafil [Cialis] 5 mg ORAL QPM PRN 10/08/15 Aspirin [Aspirin EC] 81 mg PO DAILY 08/16/16 Omeprazole [PriLOSEC] 20 mg PO DAILY 08/16/16 Albuterol Sulfate [Proair Hfa Inhaler] 2 puffs PO PRN PRN 10/02/16 Ipratropium/Albuterol [Combivent Respimat] 2 puffs INH Q6H 12/12/16 Allergies/Adverse Reactions: Allergies Allergy/AdvReac Type Severity Reaction Status Date / Time erythromycin base AdvReac Severe Nausea Verified 02/05/18 22:53 [Erythromycin Base] Anes History & Medical History - Anesthetic History Anesthesia Complications: reports: Post-Operative Nausea/Vomiting Family history of Anesthesia Complications: Denies Family history of Malignant Hyperthermia: Denies - Medical History Cardiovascular: reports: Hypertension, High cholesterol Pulmonary: reports: Asthma, Sleep apnea, CPAP use, Other Gastrointestinal: reports: GERD Urinary: reports: Kidney stones, Other Musculoskeletal: reports: Other Endocrine/Autoimmune: reports: None Blood Disorders: reports: None Skin: reports: None Smoking Status: Never smoker - Surgical History General: Cholecystectomy, Colonoscopy Eyes Ears Nose Throat (EENT): Rhinoplasty Orthopedic: Hip replacement, Shoulder arthroplasty, Arthroscopic surgery Exam General: Alert Dental: Other (crown) Mouth Openin Fingerbreadth Neck Mobility: Normal Mallampati classification: II Thyromental Distance: greater than 6 cm Respiratory: Lungs clear Cardiovascular: Regular rate, Normal S1, Normal S2, No murmurs Plan Anesthesia Type: General Consent for Procedure(s) Verified and Reviewed: Yes Code Status: Attempt Resuscitation ASA classification: 2-Mild systemic disease Is this case an emergency?: Yes
[2018-02-06] MEDS ORDERED: LACTATED RINGERS 1,000 ML IV ONE (01:14)
[2018-02-06] MEDS ORDERED: PROCHLORPERAZINE 10 MG/2 ML VIAL IVP PRN (01:55)
[2018-02-06] MEDS ORDERED: oxyCODONE 5 MG TABLET PO PRN (01:55)
[2018-02-06] MEDS ORDERED: SODIUM CHLORIDE FLUSH 0.9% 10 ML SYRINGE IVP PRN (01:55)
[2018-02-06] MEDS ORDERED: ONDANSETRON 4 MG/2 ML VIAL IVP PRN (01:55)
[2018-02-06] MEDS ORDERED: PROPOFOL 1000 MG/100 ML IV ONE (02:00)
[2018-02-06] MEDS ORDERED: LIDOCAINE-MPF 2% 5 ML VIAL IM ONE (02:00)
--- NOTE | 2018-02-06 02:05 | OPERATIVE REPORT ---
Operative Report - General Procedure Date: 02/06/18 Planned Procedure: Closed reduction of right hip dislocation Pre-Op Diagnosis: Right dislocated hip Procedure Performed: Closed reduction of right dislocated hip Post Op Diagnosis: Same - Procedure Note Primary Surgeon: Scott Robles MD Anesthesia Provider: Rodney Mathew MD Anesthesia Technique: General LMA IV Fluids (mL): 300 Estimated Blood Loss (mL): 0 Complications: none
[2018-02-06 02:19] VITALS: BP 125/77
--- NOTE | 2018-02-06 02:27 | PROCEDURE REPORT ---
DATE OF SERVICE: 02/06/2018 Physician: Darron Robles MD PREOPERATIVE DIAGNOSIS: Dislocated right hip; status post right total hip replacement. POSTOPERATIVE DIAGNOSIS: Dislocated right hip; status post right total hip replacement. PROCEDURE PERFORMED: Closed reduction of right dislocated hip. SURGEON: Darron Robles MD ANESTHESIA: Conscious sedation with anesthetic gases as administered by Dr. Jaspreet Mathew of anesthesia. DESCRIPTION OF PROCEDURE: The patient was taken to the operating room on the finish opener of 02/06/2018, where he was placed under conscious sedation and also administered some anesthetic gases for deeper anesthesia. An LMA was then placed to protect the airway as he got into a deeper anesthesia. Once adequate anesthesia was obtained, we stabilized the pelvis, flexed the right hip at about 90 degrees, and abducted the hip. With gentle longitudinal traction, with the hip flexed, we then internally rotated the hip and could palpate and visualize the hip reduced back into its joint. Post reduction, we placed the leg into abductor pillow to hold it in a stable position. Leg lengths appeared to be equal now after this reduction maneuver. Fluoroscopic machine was then brought into the operating room and x-rays in the AP projection showed the hip prosthesis to be reduced in the acetabular cup. No visible fractures were noted either. The patient was awoken from his anesthetic and taken to the recovery room in satisfactory condition. ESTIMATED BLOOD LOSS: None. REPLACEMENT: 300 mL crystalloid. INTRAOPERATIVE COMPLICATIONS: None. PLAN: The patient will keep a hip abductor pillow in place while he is supine and sleeping. We will limit some of the flexion to about 70 to 80 degrees of flexion. He may be weightbearing as tolerated on this extremity, but should keep a pillow between his legs until he is upright. He will follow up with his original operating surgeon, Dr. Gleason at [facility], within the next 1-2 weeks for a check on his condition, possibly a re-x-ray to confirm the position of his hip. We also discussed the possibility of another revision to the hip to stabilize the joint, as this is the second dislocation in about a month to month and a half. TD: 02/06/2018 02:15 JULIEN
--- NOTE | 2018-02-06 08:11 | XRAY Report ---
Reason: DISLOCATED RT HIP S/P HIP REPLACEMENT Procedure Date: 02/06/2018 Accession Number: [id number] / [id number] Procedure: FL - OR C-Arm Procedure CPT Code: FULL RESULT: EXAM: FLUOROSCOPIC GUIDANCE EXAM DATE: 02/06/2018 02:06 AM. CLINICAL HISTORY: Dislocated right hip status post hip replacement. COMPARISON: Right hip 12/12/2016 8:46 AM. FINDINGS: 2 intraoperative spot fluoroscopic captures of a reportedly dislocated hip arthroplasty are submitted. These demonstrate the stem and cup component to be in appropriate relation to each other on the single projection. No orthogonal view is provided. IMPRESSION: Fluoroscopic guidance provided for replacement of a dislocated hip arthroplasty. Total fluoroscopy time: 3 seconds. Number of images: 2. RADIA
[2018-02-06] MEDS ORDERED: SODIUM CHLORIDE FLUSH 0.9% 10 ML SYRINGE IVP SCH (09:00)
== END 2018-02-06 02:19 | disposition home or self-care (01) ==
LOC: EDUNIT# → ED 22:47 → SDS 02-06 00:50 → ED 02-06 01:15 → SDS 02-06 02:19
PROVIDERS: ATTEND Orthopaedic Surgery
PROC: 0SWRXJZ Revision of Synthetic Substitute in Right Hip Joint, Femoral Surface, External Approach (ICD-10-PCS; principal; 2018-02-05)
DX: T84.020A Dislocation of internal right hip prosthesis, initial encounter (principal); I10 Essential (primary) hypertension; E78.00 Pure hypercholesterolemia, unspecified; G47.30 Sleep apnea, unspecified; J45.909 Unspecified asthma, uncomplicated; K21.9 Gastro-esophageal reflux disease without esophagitis; Y79.3 Surgical instruments, materials and orthopedic devices (including sutures) associated with adverse incidents; Y92.008 Other place in unspecified non-institutional (private) residence as the place of occurrence of the external cause; Z79.82 Long term (current) use of aspirin; Z79.51 Long term (current) use of inhaled steroids
CPT/HCPCS: 27266; 73502; 96374; 99284; J1170; J7120

== ENCOUNTER 2018-04-03 22:34 | Emergency (ER) | payer OTHER ==
[2018-04-03 22:51] LABS: BILIRUBIN,URINE NEGATIVE (NEGATIVE); GLUCOSE, URINE (UA) NEGATIVE (NEGATIVE); KETONES,URINE (UA) NEGATIVE (NEGATIVE); LEUKOCYTE ESTERASE, URINE NEGATIVE (NEGATIVE); NITRITE,URINE NEGATIVE (NEGATIVE); OCCULT BLOOD,URINE LARGE (NEGATIVE); PH,URINE 6.5 PH (5.0-7.5); PROTEIN,URINE NEGATIVE (NEGATIVE); UROBILINOGEN,URINE 0.2 (NORMAL) E.U./dL (NORMAL)
[2018-04-03 22:52] LABS: CLARITY,URINE CLEAR (CLEAR)
[2018-04-03 23:03] LABS: BACTERIA,URINE None Seen /HPF (None Seen); RBC,URINE 0-5 /HPF (0-5); SQUAMOUS EPITHELIAL CELL,UR NONE SEEN (<= Few)
--- NOTE | 2018-04-03 23:04 | ED Physician Documentation ---
PD HPI MALE - Stated complaint Stated Complaint: KIDNEY PX - Chief complaint Chief Complaint: Abd Pain - History obtained from History obtained from: Patient - History of Present Illness Timing - onset: How many hours ago (1) Timing - details: Abrupt onset Pain level max: 10 Pain level now: 7 Associated symptoms: No: Dysuria, Urinary frequency, Hematuria Similar symptoms before: Diagnosis (similar to previous renal colic) Recently seen: Not recently seen - Additional information Additional information: sudden onset of right flank and back pain 1 hour [employer] while at home at rest. no exacerbating or ameliorating factors. mild nausea, no vomiting Review of Systems Constitutional: denies: Fever GI: reports: Abdominal Pain (right flank (but no abdominal pain per se)), Nausea. denies: Vomiting : denies: Dysuria, Frequency, Hematuria Musculoskeletal: reports: Back pain PD PAST MEDICAL HISTORY - Past Medical History Cardiovascular: Hypertension, High cholesterol Respiratory: Asthma, Sleep apnea, CPAP use, Other Endocrine/Autoimmune: None GI: GERD : Kidney stones, Other HEENT: Other Psych: None Musculoskeletal: Other Derm: None - Past Surgical History Past Surgical History: Yes General: Cholecystectomy, Colonoscopy Ortho: Hip replacement, Shoulder arthroplasty, Arthroscopic surgery HEENT: Rhinoplasty - Present Medications Home Medications: Ambulatory Orders Medication Instructions Recorded Confirmed Lisinopril/Hydrochlorothiazide 1 tab PO DAILY 10/26/12 02/05/18 [Lisinopril-Hctz 20-25 mg Tab] Meloxicam [Mobic] 15 mg PO DAILY 10/26/12 02/05/18 Multivitamin [Multivitamins] 1 each PO DAILY 10/26/12 02/05/18 Loratadine [Claritin] 10 mg PO DAILY 01/03/15 02/05/18 Tadalafil [Cialis] 5 mg ORAL QPM PRN 10/08/15 02/05/18 Aspirin [Aspirin EC] 81 mg PO DAILY 08/16/16 02/05/18 Omeprazole [PriLOSEC] 20 mg PO DAILY 08/16/16 02/05/18 Albuterol Sulfate [Proair Hfa 2 puffs PO PRN PRN 10/02/16 02/05/18 Inhaler] Ipratropium/Albuterol [Combivent 2 puffs INH Q6H 12/12/16 02/05/18 Respimat] Oxycodone HCl/Acetaminophen 1 - 2 each PO Q6H PRN #14 tablet 12/26/17 02/05/18 [Percocet 5-325 mg Tablet] Oxycodone HCl/Acetaminophen 1 - 2 each PO Q6H PRN #14 tablet 04/04/18 [Percocet 5-325 mg Tablet] Tamsulosin HCl [Flomax] 0.4 mg PO DAILY #14 capsule 04/04/18 - Allergies Allergies/Adverse Reactions: Allergies Allergy/AdvReac Type Severity Reaction Status Date / Time erythromycin base AdvReac Severe Nausea Verified 04/03/18 22:39 [Erythromycin Base] - Social History Does the pt smoke?: No Smoking Status: Never smoker Does the pt drink ETOH?: Yes Does the pt have substance abuse?: No - Immunizations Immunizations are current?: Yes - POLST Patient has POLST: No PD ED PE NORMAL - Vitals Vital signs reviewed: Yes - General General: Alert and oriented X 3, Well developed/nourished, Other (obvious painful distress) - Cardiac Cardiac: RRR, No murmur - Respiratory Respiratory: No respiratory distress, Clear bilaterally - Abdomen Abdomen: Soft, Non tender - Back Back: No CVA TTP - Derm Derm: Normal color, Warm and dry, No rash Results - Vitals Vitals: Vital Signs - 24 hr 04/03/18 04/04/18 22:35 01:02 Temperature 36.9 C Heart Rate 87 66 Respiratory 28 H 16 Rate Blood Pressure 131/97 H 128/88 H O2 Saturation 97 95 Oxygen O2 Source Room air - Labs Labs: Laboratory Tests 04/03/18 22:42 Urine Color YELLOW Urine Clarity CLEAR Urine pH 6.5 Ur Specific [place] <=1.005 Urine Protein NEGATIVE Urine Glucose (UA) NEGATIVE Urine Ketones NEGATIVE Urine Occult Blood LARGE H Urine Nitrite NEGATIVE Urine Bilirubin NEGATIVE Urine Urobilinogen 0.2 (NORMAL) Ur Leukocyte Esterase NEGATIVE Urine RBC 0-5 Urine WBC 0-3 Ur Squamous Epith Cells NONE SEEN Urine Bacteria None Seen Ur Microscopic Review INDICATED Urine Culture Comments NOT INDICATED - Rads (name of study) CT A/P Radiology: Prelim report reviewed, See rad report PD MEDICAL DECISION MAKING - ED course Complexity details: reviewed results, re-evaluated patient, considered differential, d/w patient ED course: Appears comfortable on reevaluation after CT resulted and IV dilaudid and toradol. Patient reports significant improvement, but given another dose of dilaudid for residual discomfort. Departure - Departure Disposition: 01 Home, Self Care Clinical Impression: Renal colic Condition: Good Instructions: ED Stone Renal W Colic Follow-Up: REVA DIAZ [Primary Care Provider] - Prescriptions: Oxycodone HCl/Acetaminophen [Percocet 5-325 mg Tablet] 1 - 2 each PO Q6H PRN #14 tablet PRN Reason: pain Tamsulosin HCl [Flomax] 0.4 mg PO DAILY #14 capsule Discharge Date/Time: 04/04/18 01:05
[2018-04-03] MEDS ORDERED: HYDROmorphone 1 MG/ML CARPUJECT IVP STA (23:12)
[2018-04-03] MEDS ORDERED: ONDANSETRON 4 MG/2 ML VIAL IVP STA (23:12)
[2018-04-03] MEDS ORDERED: KETOROLAC 60 MG/2 ML VIAL IVP STA (23:12)
--- NOTE | 2018-04-04 00:05 | CT Report ---
Reason: right flank pain Procedure Date: 04/03/2018 Accession Number: [id number] / [id number] Procedure: CT - Abdomen/Pelvis W/O CPT Code: FULL RESULT: EXAM: CT ABDOMEN AND PELVIS (CT KUB) EXAM DATE: 04/03/2018 11:41 PM. CLINICAL HISTORY: Right flank pain. COMPARISONS: ABDOMEN/PELVIS W/O 11/15/2015 12:06 AM. TECHNIQUE: Routine axial helical CT imaging was performed through the abdomen and pelvis without IV contrast. Reconstructions: Coronal and sagittal. In accordance with CT protocol optimization, one or more of the following dose reduction techniques were utilized for this exam: automated exposure control, adjustment of mA and/or KV based on patient size, or use of iterative reconstructive technique. FINDINGS: Lung Bases: New, noncalcified 10 and 9 mm right lower lobe nodules seen. There is also a 3 mm left lower lobe nodule image 7. Right Kidney/Ureter: There is a 3 x 2 mm proximal ureteral stone resulting in mild collecting system dilatation. Several additional stones are seen within the right kidney measuring up to 6 mm. Left Kidney/Ureter: There are several 1-2 mm intrarenal stones with no obstructing calculi. Other Solid Organs: Decreased hepatic attenuation suggesting fatty infiltration. The unenhanced pancreas, spleen and adrenal glands are unremarkable. Gallbladder/Bile Ducts: The gallbladder has been removed. There is no bile duct dilatation. Peritoneal Cavity: Diverticulosis without diverticulitis. No bowel obstruction, free air or fluid collections. Pelvic Organs: No bladder stones or wall thickening. Noncontrast images of the visualized pelvic organs are unremarkable. Vasculature: Unremarkable. Other: No acute bony abnormality. Status post right hip arthroplasty. IMPRESSION: 1. Mildly obstructing 3 x 2 mm proximal right ureteral stone. 2. Bilateral nephrolithiasis. 3. New bilateral lung nodules. While these may be secondary to infection, metastases not excluded. Dedicated chest CT recommended for further evaluation. 4. Scattered diverticula without diverticulitis.. RADIA
[2018-04-04] MEDS ORDERED: HYDROmorphone 1 MG/ML CARPUJECT IVP STA (00:30)
[2018-04-04] MEDS ORDERED: TAMSULOSIN 0.4 MG CAPSULE PO STA (00:30)
[2018-04-04] MEDS ORDERED: oxyCODONE/ACET 5/325 Prepack 4 PO STA (00:31)
[2018-04-04 01:03] VITALS: BP 128/88
== END 2018-04-04 01:05 | disposition home or self-care (01) ==
LOC: ED 22:34
DX: N23 Unspecified renal colic (principal); I10 Essential (primary) hypertension; E78.00 Pure hypercholesterolemia, unspecified; Z96.649 Presence of unspecified artificial hip joint; Z87.442 Personal history of urinary calculi
CPT/HCPCS: 74176; 81001; 96374; 96376; 99283; A9270; J1170; 81003; 87086

== ENCOUNTER 2018-06-30 21:59 | Emergency (ER) | payer OTHER ==
--- NOTE | 2018-06-30 23:04 | ED Physician Documentation ---
PD HPI ABD PAIN - Stated complaint Stated Complaint: LT SIDE PX - Chief complaint Chief Complaint: Abd Pain - History obtained from History obtained from: Patient - History of Present Illness Timing - onset: How many hours ago (1), Today Timing - duration: Hours (1) Timing - details: Abrupt onset, Still present Quality: Aching, Sharp, Pain Location: LLQ Radiation: (left testicle pain without swelling), Left flank Improved by: No: Laying still Worsened by: No: Moving, Breathing Associated symptoms: Nausea, Hematuria (appeared dark, per patient.), Testicular pain (left). No: Fever, Vomiting, Diarrhea, Dysuria Similar symptoms before: Diagnosis (similar to kidney stones in the past. Always had stones on the right. Had one pass in April and had CT at that time.) Recently seen: Not recently seen Review of Systems Constitutional: denies: Fever, Chills Nose: denies: Rhinorrhea / runny nose, Congestion Throat: denies: Sore throat Cardiac: denies: Chest pain / pressure Respiratory: denies: Cough GI: reports: Nausea. denies: Vomiting, Diarrhea : denies: Dysuria, Frequency, Testicular mass Skin: denies: Rash, Lesions PD PAST MEDICAL HISTORY - Past Medical History Cardiovascular: Hypertension, High cholesterol Respiratory: Asthma, Sleep apnea, CPAP use, Other Endocrine/Autoimmune: None GI: GERD : Kidney stones, Other HEENT: Other Psych: None Musculoskeletal: Other Derm: None - Past Surgical History Past Surgical History: Yes General: Cholecystectomy, Colonoscopy Ortho: Hip replacement, Shoulder arthroplasty, Arthroscopic surgery HEENT: Rhinoplasty - Present Medications Home Medications: Ambulatory Orders Medication Instructions Recorded Confirmed Lisinopril/Hydrochlorothiazide 1 tab PO DAILY 10/26/12 02/05/18 [Lisinopril-Hctz 20-25 mg Tab] Meloxicam [Mobic] 15 mg PO DAILY 10/26/12 02/05/18 Multivitamin [Multivitamins] 1 each PO DAILY 10/26/12 02/05/18 Loratadine [Claritin] 10 mg PO DAILY 01/03/15 02/05/18 Tadalafil [Cialis] 5 mg ORAL QPM PRN 10/08/15 02/05/18 Aspirin [Aspirin EC] 81 mg PO DAILY 08/16/16 02/05/18 Omeprazole [PriLOSEC] 20 mg PO DAILY 08/16/16 02/05/18 Albuterol Sulfate [Proair Hfa 2 puffs PO PRN PRN 10/02/16 02/05/18 Inhaler] Ipratropium/Albuterol [Combivent 2 puffs INH Q6H 12/12/16 02/05/18 Respimat] Oxycodone HCl/Acetaminophen 1 - 2 each PO Q6H PRN #14 tablet 12/26/17 02/05/18 [Percocet 5-325 mg Tablet] Oxycodone HCl/Acetaminophen 1 - 2 each PO Q6H PRN #14 tablet 04/04/18 [Percocet 5-325 mg Tablet] Tamsulosin HCl [Flomax] 0.4 mg PO DAILY #14 capsule 04/04/18 Naproxen 500 mg PO BID #20 tablet 07/01/18 Ondansetron Odt [Zofran] 4 mg TL Q6H PRN #10 tablet 07/01/18 Oxycodone HCl/Acetaminophen 1 - 2 each PO Q6H PRN #14 tablet 07/01/18 [Percocet 5-325 mg Tablet] Tamsulosin HCl [Flomax] 0.4 mg PO DAILY #5 capsule 07/01/18 - Allergies Allergies/Adverse Reactions: Allergies Allergy/AdvReac Type Severity Reaction Status Date / Time erythromycin base AdvReac Severe Nausea Verified 04/03/18 22:39 [Erythromycin Base] - Social History Does the pt smoke?: No Smoking Status: Never smoker Does the pt drink ETOH?: Yes Does the pt have substance abuse?: No - Immunizations Immunizations are current?: Yes - POLST Patient has POLST: No PD ED PE NORMAL - Vitals Vital signs reviewed: Yes - General General: Alert and oriented X 3, Well developed/nourished, Other (appears uncomfortable) - Cardiac Cardiac: RRR, No murmur - Respiratory Respiratory: Clear bilaterally - Abdomen Abdomen: Normal bowel sounds, Soft, Non tender, Non distended, No organomegaly - Male Male : Other (no hernias noted; left testicle normal size and position. Not focally tender. ) - Rectal Rectal: Deferred - Back Back: Other (left CVA tenderness noted) Results - Vitals Vitals: Vital Signs - 24 hr 04/04/1907/01/18 07/01/18 22:09 00:27 01:45 Temperature 36.7 C 36.7 C 36.3 C L Heart Rate 84 74 75 Respiratory 20 15 20 Rate Blood Pressure 142/83 H 127/92 H 148/92 H O2 Saturation 98 95 94 Oxygen O2 Source Room air - Labs Labs: Laboratory Tests 07/01/18 00:40 Urine Color DARK YELLOW Urine Clarity HAZY Urine pH 5.5 Ur Specific [place] >=1.030 H Urine Protein TRACE Urine Glucose (UA) NEGATIVE Urine Ketones NEGATIVE Urine Occult Blood LARGE H Urine Nitrite NEGATIVE Urine Bilirubin NEGATIVE Urine Urobilinogen 0.2 (NORMAL) Ur Leukocyte Esterase TRACE H Urine RBC TNTC H Urine WBC 0-3 Ur Squamous Epith Cells RARE Squamous Urine Bacteria None Seen Ur Microscopic Review INDICATED Urine Culture Comments INDICATED PD MEDICAL DECISION MAKING - ED course Complexity details: reviewed old records, re-evaluated patient (He got only moderate in improvement with Toradol and lidocaine. He is subsequently given hydromorphone with better improvement.), considered differential (sounds like kidney stone, and with blood in urine. Looked at recent CT scan and had just 1-2 mm stones in left kidney, so would not be passing large one here now. Shared decision to not get imaging today. ), d/w patient Departure - Departure Disposition: 01 Home, Self Care Clinical Impression: Left sided abdominal pain, Ureterolithiasis Condition: Stable Record reviewed to determine appropriate education?: Yes Instructions: ED Stone Renal W Colic Follow-Up: REVA DIAZ [Primary Care Provider] - Prescriptions: Naproxen 500 mg PO BID #20 tablet Ondansetron Odt [Zofran] 4 mg TL Q6H PRN #10 tablet PRN Reason: Nausea / Vomiting Oxycodone HCl/Acetaminophen [Percocet 5-325 mg Tablet] 1 - 2 each PO Q6H PRN #14 tablet PRN Reason: pain Tamsulosin HCl [Flomax] 0.4 mg PO DAILY #5 capsule Comments: Drink lots of fluids. Use an anti-inflammatory such as naproxen twice daily for the next several days to week. Add ondansetron if needed for nausea. Tylenol or Percocet if needed for pain. He could do tamsulosin daily for the next several days to promote passage of the stone. Recheck if not better over the next several days. Discharge Date/Time: 07/01/18 01:48
[2018-06-30] MEDS ORDERED: LIDOCAINE-MPF 2% 6 ML in SODIUM CHLORIDE 0.9% 50 ML IV STA (23:12)
[2018-06-30] MEDS ORDERED: SODIUM CHLORIDE 0.9% 1,000 ML IV ONE (23:12)
[2018-06-30] MEDS ORDERED: KETOROLAC 30 MG/ML VIAL IVP STA (23:12)
[2018-06-30] MEDS ORDERED: ONDANSETRON 4 MG/2 ML VIAL IVP STA (23:12)
[2018-06-30] MEDS ORDERED: DEXAMETHASONE 10 MG/ML VIAL IVP STA (23:22)
[2018-07-01] MEDS ORDERED: oxyCODONE/ACET 5/325 Prepack 4 PO STA (00:42)
[2018-07-01] MEDS ORDERED: HYDROmorphone 1 MG/ML CARPUJECT IVP STA ×2 (00:42)
[2018-07-01] MEDS ORDERED: ONDANSETRON ODT 4 MG Prepack 2 TL PRN (00:42)
[2018-07-01 01:02] LABS: BILIRUBIN,URINE NEGATIVE (NEGATIVE); GLUCOSE, URINE (UA) NEGATIVE (NEGATIVE); KETONES,URINE (UA) NEGATIVE (NEGATIVE); LEUKOCYTE ESTERASE, URINE TRACE (NEGATIVE); NITRITE,URINE NEGATIVE (NEGATIVE); OCCULT BLOOD,URINE LARGE (NEGATIVE); PH,URINE 5.5 PH (5.0-7.5); PROTEIN,URINE TRACE mg/dL (NEGATIVE); UROBILINOGEN,URINE 0.2 (NORMAL) E.U./dL (NORMAL)
[2018-07-01 01:08] LABS: BACTERIA,URINE None Seen /HPF (None Seen); CLARITY,URINE HAZY (CLEAR); RBC,URINE TNTC /HPF (0-5); SQUAMOUS EPITHELIAL CELL,UR RARE Squamous (<= Few)
[2018-07-01 01:46] VITALS: BP 148/92
== END 2018-07-01 01:48 | disposition home or self-care (01) ==
LOC: ED 21:59
DX: N20.1 Calculus of ureter (principal); I10 Essential (primary) hypertension; E78.00 Pure hypercholesterolemia, unspecified; Z96.649 Presence of unspecified artificial hip joint
CPT/HCPCS: 81001; 87086; 96361; 96374; 96375; 99283; 99284; J1170; J7040; 81003

== ENCOUNTER 2018-11-07 08:33 | Outpatient (CLI) | payer OTHER ==
--- NOTE | 2018-11-07 16:04 | MRI Report ---
Reason: PAIN IN LEFT KNEE Procedure Date: 11/07/2018 Accession Number: [id number] / [id number] Procedure: MRI - Knee LT W/O CPT Code: FULL RESULT: EXAM: LEFT KNEE MRI WITHOUT CONTRAST EXAM DATE: 11/07/2018 09:45 AM. CLINICAL HISTORY: Pain in left knee. COMPARISON: None. TECHNIQUE: Multiplanar, multisequence T1-weighted and fluid-sensitive sequences of the knee without contrast. Other: None. FINDINGS: Bones: No fractures. No osseous lesions. Multifocal subchondral edema at the medial, lateral, and patellofemoral compartments. Articular Cartilage: Broad areas of full-thickness cartilage loss at the central weightbearing medial compartment, as well as at the lateral femoral trochlea. Shallow partial-thickness cartilage loss at the mesial margin of the lateral femoral condyle. Tricompartmental osteophyte formation. Medial Meniscus: Blunting of the posterior horn of the medial meniscus and absence of the body likely reflects prior medial meniscectomy. There is fraying of the free edge of the posterior horn, as well. No discrete tear. Lateral Meniscus: Incomplete radial tear of the posterior horn of the lateral meniscus. Cruciate Ligaments: The anterior and posterior cruciate ligaments are intact. Collateral Ligaments: The medial collateral and lateral collateral ligamentous structures are intact. Tendons: The quadriceps, patellar, semimembranosus, and popliteus tendons are unremarkable. Musculature: No edema or fatty atrophy. Other: Moderate effusion with synovitis. Probable loose bodies within the popliteus tendon sheath. No popliteal cyst. No loose bodies. The medial and lateral retinacula are intact. The subcutaneous tissues and fat pads are unremarkable. IMPRESSION: 1. Left knee osteoarthritis, severe at the medial and patellofemoral compartments. 2. Presumed postsurgical changes of prior medial meniscectomy, with absence of the body and blunting of the posterior horn. There is residual fraying of the free edge of the posterior horn without discrete tear. 3. Incomplete radial tear of the posterior horn of the lateral meniscus. 4. Intact cruciate and collateral ligaments. 5. Moderate effusion with synovitis and loose bodies within the popliteus tendon sheath. RADIA
== END 2018-11-07 08:34 | disposition home or self-care (01) ==
LOC: DI 08:33
PROVIDERS: ATTEND Nurse Practitioner Family
DX: M17.12 Unilateral primary osteoarthritis, left knee (principal); S83.282A Other tear of lateral meniscus, current injury, left knee, initial encounter; M25.462 Effusion, left knee; M65.9 Synovitis and tenosynovitis, unspecified; M67.864 Other specified disorders of tendon, left knee

== ENCOUNTER 2018-12-31 08:45 | Day surgery (SDC) | payer OTHER ==
[2018-12-31] MEDS ORDERED: LACTATED RINGERS 1,000 ML IV ONE (09:02)
[2018-12-31 13:15] VITALS: BP 122/75
== END 2018-12-31 08:46 | disposition home or self-care (01) ==
LOC: SDS 08:45
PROVIDERS: ATTEND Surgery
PROC: 0DJD8ZZ Inspection of Lower Intestinal Tract, Via Natural or Artificial Opening Endoscopic (ICD-10-PCS; principal; 2018-12-31 10:30)
DX: Z12.11 Encounter for screening for malignant neoplasm of colon (principal); K57.30 Diverticulosis of large intestine without perforation or abscess without bleeding; I10 Essential (primary) hypertension
CPT/HCPCS: 45378; J7120

== ENCOUNTER 2019-01-20 15:16 | Outpatient (CLI) | payer OTHER ==
--- NOTE | 2019-01-20 16:35 | SLEEP CARE CONSULTATION ---
Information from patient questionnaire entered by Ana Marcum. I have reviewed and concur with the information entered by Ana Marcum. This document represents the service I personally performed and the decisions made by me, Rodger Hardy MD, [facility]. History of Present Illness Previous diagnosis: Mild, Obstructive Sleep Apnea-Hypopnea Syndrome AHI: 10.8 Reason for CPAP/BiPAP follow up: annual Equipment type: CPAP Equipment obtained from: [employer] [employer] Mask style: Nasal pillows Prior sleep studies: Yes Year and Where: 2015 [facility] HPI additional information: HPI: Mr. Clark was diagnosed to have mild obstructive sleep apnea-hypopnea syndrome and returns today for annual follow up of CPAP therapy. The patient gets his CPAP from [employer] but nothing lately. He wears the Respironics DreamWear nasal pillows. He continues to use the device nightly and all through the night. The compliance report shows that he uses the device 158 nights out of the past 180 nights, averaging 6.6 hours a night. He complains of no particular problem with the device such as soreness on the face, dry nose, epistaxis, nasal congestion or headache. He thinks that the pressure of 5 - 9 cmH2O is comfortable. On the CPAP therapy he notices improvement in his sleep quality, a nd that he wakes up feeling fresher in the morning and more awake/alert during the day. [place] Sleepiness Scale score is 15. His girlfriend notices no snore at all. The average residual AHI is 2.5; and large leak, 1 minute a night. The 90th percentile pressure is 8.1 cmH2O. CPAP Compliance Data - Data Reviewed with Patient Average duration of nightly device use: 6h 36m Compliance rate %: 85.6 Current pressure setting (cmH2O): 5-9 Humidity settin Heated hose settin Subjective Patient concerns: reports: dry mouth, nose, throat (*nose), other (sometimes headaches) Initial [place] Sleepiness Scale score: 18 Current [place] Sleepiness Scale score: 15 Allergies and Home Medications Drug allergies reviewed: Yes Home medication list reviewed: Yes Review of Systems Review of systems same as previous: Yes Physical Exam Weight: 226 lb Impression and Plan IMPRESSION: 1. Obstructive Sleep Apnea-Hypopnea Syndrome, mild, with the patient continuing to do well on nasal CPAP therapy. He has good compliance and significant clinical improvement. The current pressure appears effective and comfortable. Overall, she is very satisfied with treatment and plans to continue with it long-term. Because he has not been getting supplies from [employer], I will switch him to a different durable medical supplier. PLAN: 1. Continue with a CPAP set between 5 and 9 cmH2O. 2. Try to lose weight 3. Try ResMed N30i mask and P30i nasal pillows 4. Prescription made for CPAP supplies. 5. Return in one year for follow up or earlier if there is any problem with the treatment. I spent 100% of this 20 minute visit face to face with the patient with greater than 50% of this was spent time counseling the patient and coordination of care.
== END 2019-01-20 15:17 | disposition home or self-care (01) ==
LOC: SC 15:16
PROVIDERS: ATTEND Internal Medicine Pulmonary Disease
DX: G47.33 Obstructive sleep apnea (adult) (pediatric) (principal)
CPT/HCPCS: 99212; 99213

== ENCOUNTER 2019-05-27 17:10 | Outpatient (CLI) | payer OTHER | END 2019-05-27 17:11 | disposition critical access hospital (66) | LOC: EMS 17:10 | PROVIDERS: ATTEND Surgery | DX: M54.2 Cervicalgia (principal); M54.5 Low back pain; V43.52XA Car driver injured in collision with other type car in traffic accident, initial encounter; Y92.414 Local residential or business street as the place of occurrence of the external cause | CPT/HCPCS: A0425; A0429 ==

== ENCOUNTER 2019-05-27 17:33 | Emergency (ER) | payer OTHER ==
[2019-05-27] MEDS ORDERED: KETOROLAC 30 MG/ML VIAL IM STA (17:44)
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
[2019-05-27] MEDS ORDERED: oxyCODONE 5 MG TABLET PO STA (20:28)
[2019-05-27] MEDS ORDERED: MAG HYDROX/AL HYDROX/SIMETH 30 ML UDC PO STA (20:28)
[2019-05-27] MEDS ORDERED: ONDANSETRON ODT 4 MG TABLET TL STA (20:28)
[2019-05-27 20:39] VITALS: BP 138/99
== END 2019-05-27 21:00 | disposition home or self-care (01) ==
LOC: EDUNIT# → ED 17:33
DX: S16.1XXA Strain of muscle, fascia and tendon at neck level, initial encounter (principal); S39.012A Strain of muscle, fascia and tendon of lower back, initial encounter; V43.52XA Car driver injured in collision with other type car in traffic accident, initial encounter; W22.11XA Striking against or struck by driver side automobile airbag, initial encounter; Y92.410 Unspecified street and highway as the place of occurrence of the external cause; M50.323 Other cervical disc degeneration at C6-C7 level; K21.9 Gastro-esophageal reflux disease without esophagitis; I10 Essential (primary) hypertension; Z79.82 Long term (current) use of aspirin
CPT/HCPCS: 72100; 72125; 96372; 99284; A9270; Q0162

== ENCOUNTER 2020-01-19 17:36 | Outpatient (CLI) | payer OTHER ==
--- NOTE | 2020-01-19 11:10 | SLEEP CARE CONSULTATION ---
Information from patient questionnaire entered by Ana Marcum. I have reviewed and concur with the information entered by Ana Marcum. This document represents the service I personally performed and the decisions made by me, Halley Huitron ARNP. History of Present Illness Service Date and Time: 01/19/2020 1100 Previous diagnosis: Mild, Obstructive Sleep Apnea-Hypopnea Syndrome AHI: 10.8 Reason for follow up: annual (Last seen 2018) Equipment type: CPAP Equipment obtained from: [employer] (getting supplies as needed) Mask style: Nasal pillows Backup mask available: Yes (old mask) Last cushion change: 6 weeks Prior sleep studies: Yes Year and Where: 2015 [facility] Type of Sleep Study: Polysomnography HPI additional information: NICOL QUINTERO was diagnosed to have mild, AHI 10.8, obstructive sleep apnea- hypopnea syndrome and has a Telehealth visit today for CPAP therapy annual follow-up. Sleep Study - Results Prior sleep studies: Yes Year and Where: 2015 [facility] CPAP Compliance Data - Data Reviewed with Patient Average duration of nightly device use: 7 hours 51 minutes Compliance rate %: 95.6 Current pressure setting (cmH2O): 5-9 Humidity settin Heated hose settin Average residual AHI: 2.8 Average large leak: 2 minutes 41 seconds Subjective Patient concerns: reports: condensation in mask/hose (sometimes in mask but adjusted humidity and it resolved). denies: aerophagia, mask discomfort, air blowing in eyes, mask leak noise, nasal congestion, dry mouth, nose, throat, epistaxis, other Observed to snore while using device: No Current pressure setting perceived as: comfortable On therapy, patient: reports: sleeping better, awakening more refreshed, being more awake and alert during the day, more rested overall. denies: drowsiness while driving Initial [place] Sleepiness Scale score: 18 Allergies and Home Medications Drug allergies reviewed: Yes (erythromycin) Home medication list reviewed: Yes (no changes) Review of Systems Review of systems same as previous: Yes (Left knee replacement October 2019) Physical Exam Vital signs obtained and entered by: Telehealth visit, no vitals obtained Height: 5 ft 10 in Impression and Plan 1. Obstructive Sleep Apnea-Hypopnea Syndrome, mild, with good treatment compliance and good apnea control. On CPAP therapy, the patient has better sleep quality and is more rested overall. He feels he is doing well and has no concerns. Patient's apnea severity and rationale for treatment to reduce apnea, improve sleep quality and reduce cardiovascular and cerebrovascular events was reviewed. I also reviewed the benefit of consistent device use of CPAP for his hypertension and gastric reflux. * Continue auto CPAP pressure at 5-9 cmH2O * Notify me if snoring with mask or feeling that the pressure is too much or too little * Attempt to lose weight * Call this office if any problems using CPAP * Return for follow up in 1 year, or sooner if concerns arise Counseling Topics: Spare mask Visit Type: Telehealth Video Video Type: Doximity Patient Location: Home Location of Provider: Home Patient agrees and consents to this telehealth visit type: Yes Patient agrees to have their insurance billed: Yes Provider Statement: I spent 100% of the Telehealth Video Call with the patient with greater than 50% spent counseling the patient and coordination of care.
== END 2020-01-19 17:37 | disposition home or self-care (01) ==
LOC: SC 17:36
PROVIDERS: ATTEND Nurse Practitioner Family
DX: G47.33 Obstructive sleep apnea (adult) (pediatric) (principal)

== ENCOUNTER 2020-09-18 09:00 | Outpatient (CLI) | payer MEDICARE, OTHER | END 2020-09-18 09:01 | disposition home or self-care (01) | LOC: RT 09:00 | PROVIDERS: ATTEND Physician Assistant | DX: J45.909 Unspecified asthma, uncomplicated (principal); R05 Cough; R06.00 Dyspnea, unspecified | CPT/HCPCS: 94060; 94729 ==

== ENCOUNTER 2020-09-30 13:15 | Outpatient (CLI) | payer MEDICARE, OTHER ==
--- NOTE | 2020-09-30 15:05 | XRAY Report ---
PROCEDURE: SI Joints INDICATIONS: LOW BACK PAIN / SI JOINT PAIN TECHNIQUE: 3 views of the sacroiliac joints were acquired. COMPARISON: none FINDINGS: Bones: No bony erosions or ankylosis. No suspicious bony lesions. No fractures. Right hip arthrop lasty. Soft tissues: Overlying bowel gas pattern is normal. No suspicious soft tissue densities. IMPRESSION: SI joints are patent. Reviewed by: Trina Fernandes MD on 09/30/2020 3:03 PM PDT Approved by: Trina Fernandes MD on 09/30/2020 3:03 PM PDT Station ID: [id number]
--- NOTE | 2020-09-30 15:49 | XRAY Report ---
PROCEDURE: Lumbar Spine 2 View INDICATIONS: LOW BACK PAIN TECHNIQUE: 3 views of the lumbar spine were acquired. COMPARISON: None. FINDINGS: Bones: 5 afb-mwh-olezalv vertebrae are present. There is multilevel trace retrolithesis. No vertebr al body compression fractures. No suspicious bony lesions. Severe disc space narrowing is present a t L5-s1. Moderate foraminal narrowing is present at L5-S1. Multilevel mild ot moderate disc space n arrowing is present. Mild to moderate foraminal narrowing is present at L3-4. Soft tissues: Overlying bowel gas pattern is normal. No suspicious soft tissue calcifications. IMPRESSION: Degenerative changes most notable at L5-S1. Reviewed by: Trina Fernandes MD on 09/30/2020 3:47 PM PDT Approved by: Trina Fernandes MD on 09/30/2020 3:47 PM PDT Station ID: [id number]
== END 2020-09-30 13:16 | disposition home or self-care (01) ==
LOC: DI 13:15
PROVIDERS: ATTEND Physician Assistant
DX: M54.5 Low back pain (principal); M47.817 Spondylosis without myelopathy or radiculopathy, lumbosacral region; Z96.641 Presence of right artificial hip joint

== ENCOUNTER 2021-03-22 14:15 | Outpatient (CLI) | payer MEDICARE, OTHER ==
--- NOTE | 2021-03-22 16:29 | CT Report ---
PROCEDURE: Abdomen/Pelvis WO INDICATIONS: RIGHT FLANK PAIN TECHNIQUE: Noncontrast 5 mm thick sections acquired from the diaphragms to the symphysis. 5 mm coronal and sagi ttal reformats were then performed. For radiation dose reduction, the following was used: automated exposure control, adjustment of mA and/or kV according to patient size. COMPARISON: 04/03/2018, 11/15/2015. FINDINGS: Image quality: Excellent. ABDOMEN: Lung bases: 1.1 cm rounded solid appearing nodule in posterior aspect of right lower lobe is seen ser ies 4 image 1 unchanged from previous study. There is also an 8 mm nodule seen in lateral aspect of r ight lower lobe series 4 image 11 also seen on previous study and not significantly changed. Bibasila r mild dependent atelectasis is seen. Heart size is normal. Solid organs: Liver and spleen are normal in size. Small splenule is noted. Hepatic steatosis is see n, no discrete hepatic lesion. Gallbladder is surgically absent. Pancreas is normal in contours. No adrenal nodules. Kidneys are normal in size. Bilateral nonobstructing renal calculi is seen measure s up to 8 mm in size in midpole of right kidney. No obstructing renal stone or hydronephrosis is seen . No hydroureter. Peritoneum and bowel: There is a small hiatal hernia. No evidence of bowel obstruction. No gross abno rmal bowel wall thickening or mesenteric fat stranding is seen. Appendix is seen in retrocecal region and measures up to 9 mm in diameter series 6 image 36 and series 3 image 48. No significant periappe ndiceal fat stranding is seen. No gross appendiceal wall thickening. There is no free fluid of free a ir. Mild colonic diverticulosis is seen, no CT evidence of acute diverticulitis. Nodes and vessels: No retroperitoneal or mesenteric adenopathy by size criteria. Aorta and inferior vena cava are normal in caliber. Miscellaneous: No ventral hernias. PELVIS: Genitourinary: Bladder wall thickness is normal. Miscellaneous: No inguinal hernias or adenopathy. Bones: No suspicious bony lesions. No vertebral body compression fractures. Patient is status post prior right total hip arthroplasty. IMPRESSION: 1. 1.1 cm and 8 mm round solid appearing nodule seen in right lower lobe not significantly changed in size and appearance compared to 2019 study and is indeterminate etiology. CT of chest can be done fo r further evaluation of bilateral lung anand. 2. Bilateral nonobstructing renal calculi. No hydronephrosis or hydroureter. Normal-appearing urinary bladder. 3. Mildly enlarged appendix seen in right lower quadrant abdomen without significant wall thickening or periappendiceal fat stranding. Very early acute appendicitis cannot be entirely excluded, suggest clinical correlation. 4. No bowel obstruction. No other area of abnormal bowel wall thickening or mesenteric fat stranding. No free fluid of free air. 5. Hepatic steatosis, no discrete hepatic lesion. Prior cholecystectomy. Reviewed by: Miller Bal MD on 03/22/2021 4:28 PM PST Approved by: Miller Bal MD on 03/22/2021 4:28 PM PST Station ID: [id number]
== END 2021-03-22 14:16 | disposition home or self-care (01) ==
LOC: DI 14:15
PROVIDERS: ATTEND Student in an Organized Health Care Education/Training Program
DX: R10.9 Unspecified abdominal pain (principal); R91.1 Solitary pulmonary nodule; N20.0 Calculus of kidney; K38.0 Hyperplasia of appendix; K76.0 Fatty (change of) liver, not elsewhere classified; Z90.49 Acquired absence of other specified parts of digestive tract

== ENCOUNTER 2021-05-10 09:05 | Outpatient (CLI) | payer MEDICARE, OTHER ==
[2021-05-10 09:46] VITALS: BP 138/87
--- NOTE | 2021-05-10 09:46 | SLEEP CARE CONSULTATION ---
Information from patient questionnaire entered by Karmen Cordova MA. I have reviewed and concur with the information entered by Karmen Cordova MA. This document represents the service I personally performed and the decisions made by , Halley Huitron ARNP. History of Present Illness Service Date and Time: 05/10/2021 0905 Previous diagnosis: Mild, Obstructive Sleep Apnea-Hypopnea Syndrome AHI: 10.8 Reason for follow up: annual (LAST SEEN 12/2019, RECALL) Equipment type: CPAP Equipment obtained from: [facility] (is not using, does not like them) Mask style: Nasal Backup mask available: Yes (old mask) Last cushion change: 6 months ago Prior sleep studies: Yes Year and Where: 2015 [facility] Type of Sleep Study: Polysomnography HPI additional information: NICOL QUINTERO was diagnosed to have mild, AHI 10.8, obstructive sleep apnea- hypopnea syndrome and returned today for CPAP therapy annual follow-up. Sleep Study - Results Type of Sleep Study: Polysomnography Prior sleep studies: Yes Year and Where: 2015 [facility] CPAP Compliance Data - Data Reviewed with Patient Average duration of nightly device use: 5 HOURS 18 MINUTES Compliance rate %: 68.3 Current pressure setting (cmH2O): 5-9 Humidity settin Heated hose settin Average residual AHI: 1.6 Average large leak: 1 Subjective Missed days of use due to: reports: illness (GERD, RECALL,) Patient concerns: denies: aerophagia, mask discomfort, air blowing in eyes, mask leak noise, condensation in mask/hose, nasal congestion, dry mouth, nose, throat, epistaxis, other Observed to snore while using device: No Current pressure setting perceived as: comfortable On therapy, patient: reports: sleeping better, awakening more refreshed, being more awake and alert during the day, more rested overall. denies: drowsiness while driving Initial Tyler Sleepiness Scale score: 18 Current Tyler Sleepiness Scale score: 12 (2021) Allergies and Home Medications Known drug allergies: No Drug allergies reviewed: Yes Home medication list reviewed: Yes (stopped omeprazole; started Pantaprazole and Montelukast; Mirapex) Allergy and home medication list: Allergies erythromycin base [Erythromycin Base] Adverse Reaction (Severe, Verified 05/27/19 17:43) Nausea Review of Systems Review of systems same as previous: No (left knee replacement October 2018) Physical Exam Vital signs obtained and entered by: SARAH BETH KOO Blood Pressure: 138/87 (LEFT, PULSE 64, RESP 14,) Heart Rate: 77 O2 Saturation: 97 (PAPER MASK) Height: 5 ft 10 in Weight: 232 lb (WITH CLOTHES) Body Mass Index: 33.3 BMI Classification: Obese Impression and Plan 1. Obstructive Sleep Apnea-Hypopnea Syndrome, mild, with fair treatment compliance and good apnea control. On CPAP therapy, the patient has better sleep quality and is more rested overall. Patient is not happy with current DME supplier and has not been getting supplies for a long time. He has a Dreamstation CPAP by [facility]. Patient has already registered their device for the recall. Patient denies any black particles seen in machine or hoses, any unusual odors coming from device. Patient has not experienced any physical symptoms such as upper airway irritation, headache, skin or eye irritation, asthma, nausea/vomiting, difficulty breathing or chest pain. If patient is not able to sleep due to waking up choking, gasping for air or other respiratory distress that they may decide to continue using it until it is either replaced or repaired. Patient voiced understanding and agreement with plan. For patient supply concerns, I will have my delivery coordinator inform of DME options. A DWO prescription will then be made. Patient advised to contact this office if further supply problems. Patient's apnea severity and rationale for treatment to reduce apnea, improve sleep quality and reduce cardiovascular and cerebrovascular events was reviewed. I also reviewed the benefit of consistent device use of CPAP for hypertension and gastric reflux. Currently patients BMI is 33.3. Obesity increases the risk of apnea, CPAP pressure requirements and overall health risks especially cardiovascular and diabetes. Patient was encouraged to lose weight for their overall health and to reduce apneas. * Continue auto CPAP pressure at 5-9 cmH2O * Notify me if snoring with mask or feeling that the pressure is too much or too little * Attempt to lose weight * Call this office if any problems using CPAP * Return for follow up in 1 year, or sooner if concerns arise Counseling Topics: Spare mask, Weight loss health impact Visit Type: In Office Time Spent with Patient (minutes): 23 Provider Statement: I spent 100% of the Face to Face Visit with the patient with greater than 50% spent counseling the patient and coordination of care.
== END 2021-05-10 09:06 | disposition home or self-care (01) ==
LOC: SC 09:05
PROVIDERS: ATTEND Nurse Practitioner Family
DX: G47.33 Obstructive sleep apnea (adult) (pediatric) (principal); E66.9 Obesity, unspecified; Z68.33 Body mass index [BMI] 33.0-33.9, adult
CPT/HCPCS: 99213; G0463; 99212

== ENCOUNTER 2021-07-26 13:52 | Outpatient (CLI) | payer MEDICARE, OTHER ==
--- NOTE | 2021-07-26 16:17 | XRAY Report ---
PROCEDURE: Hand 3 View BILAT, x-ray INDICATIONS: BILATERAL HAND PX TECHNIQUE: 3 views of the hand(s) acquired. COMPARISON: None FINDINGS: Bones: No fractures or dislocations. No suspicious bony lesions. Bilateral first carpal metacarpal joint space and narrowing and marginal osteophyte greater on the right. Distal interphalangeal joint space narrowing with dorsal marginal osteophytes noted in the bilateral third through fifth fingers. Soft tissues: No suspicious soft tissue calcifications. IMPRESSION: Bilateral polyarticular osteoarthritis involving the first carpometacarpal and distal interphalangeal joints Reviewed by: Rg Madsen MD on 07/26/2021 3:15 PM [facility] Approved by: Rg Madsen MD on 07/26/2021 3:15 PM [facility] Station ID: [id number]
== END 2021-07-26 13:53 | disposition home or self-care (01) ==
LOC: DI.N 13:52
PROVIDERS: ATTEND Physician Assistant
DX: M18.0 Bilateral primary osteoarthritis of first carpometacarpal joints (principal); M19.042 Primary osteoarthritis, left hand; M19.041 Primary osteoarthritis, right hand

== ENCOUNTER 2021-09-29 18:07 | Outpatient (CLI) | payer MEDICARE, OTHER ==
--- NOTE | 2021-09-29 21:40 | XRAY Report ---
PROCEDURE: Knee 3 View BILAT INDICATIONS: BILATERAL KNEE PAIN. TECHNIQUE: 3 views of the bilateral knee(s) were acquired. COMPARISON: None. FINDINGS: Bones: Postsurgical changes of left total knee arthroplasty. No evidence for hardware loosening or fa ilure. Alignment appears anatomic. Chronic calcifications noted over the anterior margin of the proxi mal left tibia and posterior to the distal left femur. Moderate tricompartmental degenerative changes of the right knee. No acute fracture or dislocation identified on the right. No suspicious bony lesi ons. Soft tissues: Soft tissue swelling over the anterior left knee overlying the expected location of the patellar tendon. No substantial left-sided joint effusion. No right-sided joint effusion seen. No ibanez spicious soft tissue calcifications. IMPRESSION: 1. Status post left total knee arthroplasty without evidence for hardware complication. 2. Bilateral knee without acute fracture or dislocation. 3. Moderate tricompartmental right knee osteoarthrosis. 4. Moderate anterior left knee soft tissue swelling at the level of the patellar tendon. Reviewed by: Aftab Roberto MD on 09/29/2021 9:39 PM PDT Approved by: Aftab Roberto MD on 09/29/2021 9:39 PM PDT Station ID: [id number]
== END 2021-09-29 18:08 | disposition home or self-care (01) ==
LOC: DI 18:07
PROVIDERS: ATTEND Physician Assistant
DX: Z96.652 Presence of left artificial knee joint (principal); M17.11 Unilateral primary osteoarthritis, right knee; M79.89 Other specified soft tissue disorders

== ENCOUNTER 2022-02-14 14:31 | Outpatient (CLI) | payer MEDICARE, OTHER ==
--- NOTE | 2022-02-14 16:21 | XRAY Report ---
PROCEDURE: Shoulder 3 View LT INDICATIONS: SHOULDER PX/OLD INJ TECHNIQUE: 3 views of the shoulder were acquired. COMPARISON: None. FINDINGS: Bones: No fractures or dislocations. No suspicious bony lesions. Visualized ribs appear intact. Soft tissues: No suspicious soft tissue calcifications. IMPRESSION: Mild degenerative changes of the left acromioclavicular joint and left glenohumeral join t. No acute abnormality Reviewed by: Garry Feldman on 02/14/2022 4:20 PM PST Approved by: Garry Feldman on 02/14/2022 4:20 PM PST Station ID: [id number]
== END 2022-02-14 14:32 | disposition home or self-care (01) ==
LOC: DI 14:31
PROVIDERS: ATTEND Physician Assistant
DX: M19.012 Primary osteoarthritis, left shoulder (principal)

== ENCOUNTER 2022-03-07 07:00 | Outpatient (CLI) | payer MEDICARE, OTHER ==
--- NOTE | 2022-03-07 09:20 | Ultrasound Report ---
PROCEDURE: Retroperitoneal INDICATIONS: FEELING OF INCOMPLETE BLADDER EMPTYING TECHNIQUE: Real-time scanning was performed of the retroperitoneal organs, with image documentation. COMPARISON: None. FINDINGS: Kidneys: Kidneys are normal in size. Right kidney measures 11.9 cm long; left kidney measures 12.5 cm long. Right renal cortical thickness is 1.7 cm; left renal cortical thickness is 1.5 cm. No mariluz d masses, hydronephrosis, or obstructing nephrolithiasis. There are bilateral nonobstructing nephrol iths. Pancreas: Visualized portions of the pancreas are sonographically normal. Aorta: Visualized aorta is normal in caliber at 3 cm or less. Iliac arteries: Proximal common iliac arteries are normal in caliber at 2.5 cm or less. IVC: Intrahepatic inferior vena cava is patent. Bladder: Pre-void bladder volume is 169 mL. Post-void residual is 7 mL. Pre-void images demonstrat e no intraluminal masses or stones. On pre-void images, neither right nor left ureteral jets are not ed with color Doppler interrogation. (Of note, ureteral jets may not be detectable in up to 25% of c ases due to insufficient differences in specific gravity between ureteral and bladder urine). Prostate: The prostate is enlarged measuring 63 cc. Miscellaneous: No free abdominal fluid. The liver is partially visualized and appears hyperechoic w hich can be seen with hepatic steatosis. IMPRESSION: 1. No acute abnormality. 2. No hydronephrosis or obstructing nephroureteral calculi. 3. Enlarged prostate. No post void residual. Reviewed by: Garry Feldman on 03/07/2022 9:19 AM [facility] Approved by: Garry Feldman on 03/07/2022 9:19 AM PST Station ID: [id number]
== END 2022-03-07 07:01 | disposition home or self-care (01) ==
LOC: DI 07:00
PROVIDERS: ATTEND Physician Assistant
DX: N40.1 Benign prostatic hyperplasia with lower urinary tract symptoms (principal); R39.14 Feeling of incomplete bladder emptying

== ENCOUNTER 2022-03-12 17:40 | Outpatient (CLI) | payer MEDICARE, OTHER ==
--- NOTE | 2022-03-13 14:03 | XRAY Report ---
PROCEDURE: Lumbar Spine 2 View INDICATIONS: LOW BACK PAIN, UNSPECIFIED TECHNIQUE: 2 views of the lumbar spine were acquired. COMPARISON: None. FINDINGS: Bones: 5 mby-aks-fynuetl vertebrae are present. Trace anterolisthesis of L5 on S1. Otherwise normal alignment. No vertebral body compression fractures. No suspicious bony lesions. Lower lumbar facet a rthropathy. Soft tissues: Overlying bowel gas pattern is normal. No suspicious soft tissue calcifications. IMPRESSION: Lower lumbar facet arthropathy. No evidence acute bony abnormality of the lumbar spine. Reviewed by: Geovanny Win MD on 03/13/2022 2:02 PM PST Approved by: Geovanny Win MD on 03/13/2022 2:02 PM PST Station ID: [id number]
== END 2022-03-12 17:41 | disposition home or self-care (01) ==
LOC: DI 17:40
PROVIDERS: ATTEND Nurse Practitioner
DX: M47.816 Spondylosis without myelopathy or radiculopathy, lumbar region (principal)

== ENCOUNTER 2022-04-11 21:03 | Outpatient (CLI) | payer MEDICARE, OTHER ==
--- NOTE | 2022-04-12 16:42 | XRAY Report ---
PROCEDURE: Chest 2 View X-Ray INDICATIONS: Shortness of breath TECHNIQUE: 2 views of the chest were acquired. COMPARISON: Chest x-ray 10/02/2016 FINDINGS: Surgical changes and devices: None. Lungs and pleura: No pleural effusions or pneumothorax. Lungs are clear. Mediastinum: Mediastinal contours are normal. Heart size is normal. Bones and chest wall: No suspicious bony abnormalities. Soft tissues appear unremarkable. IMPRESSION: No acute pulmonary process. Reviewed by: Trina Fernandes MD on 04/12/2022 4:41 PM PST Approved by: Trina Fernandes MD on 04/12/2022 4:41 PM PST Station ID: [id number]
== END 2022-04-11 21:04 | disposition home or self-care (01) ==
LOC: DI 21:03
PROVIDERS: ATTEND Physician Assistant
DX: R06.02 Shortness of breath (principal)